=== PATIENT | female | born 1955 | race Caucasian/White ===

== ENCOUNTER 2020-01-20 15:09 | Emergency (ER) | payer MEDICARE, MEDICAID ==
[~2020-01-20] VITALS: Ht 160 cm; Wt 124.7 kg
[2020-01-20 15:15] VITALS: BP 154/45
[2020-01-20 16:04] LABS: BASOPHILS # (AUTO) 0.1 K/uL (0.00-0.22); BASOPHILS % (AUTO) 1.1 % (0.0-2.0); EOSINOPHILS # (AUTO) 0.1 K/uL (0-0.4); EOSINOPHILS % (AUTO) 3.1 % (0.0-4.0); HEMATOCRIT 37.1 % (36-48); HEMOGLOBIN 12.5 g/dL (12.0-16.0); LYMPHOCYTES # (AUTO) 1.9 K/uL (2.5-16.5); LYMPHOCYTES % (AUTO) 41.6 % (20.5-51.1); MEAN CORPUSCULAR HEMOGLOBIN 31 pg (27-31); MEAN CORPUSCULAR HGB CONC 34 g/dL (33-37); MEAN CORPUSCULAR VOLUME 93.3 fL (80-94); MONOCYTES # (AUTO) 0.4 K/uL (0.8-1.0); MONOCYTES % (AUTO) 7.9 % (1.7-9.3); NEUTROPHILS # (AUTO) 2.1 K/uL (1.8-7.7); NEUTROPHILS % (AUTO) 46.3 % (42.2-75.2); PLATELET COUNT (AUTO) 200 K/uL (140-450); RED BLOOD CELL COUNT(AUTO) 3.97 MIL/uL (4.20-5.40); RED CELL DISTRIBUTION WIDTH 13.5 % (11.6-13.7); WHITE BLOOD COUNT (AUTO) 4.6 K/uL (4.8-10.8)
[2020-01-20 16:14] LABS: BILIRUBIN,URINE NEGATIVE (NEGATIVE); BLOOD, URINE NEGATIVE (NEGATIVE); COLOR,URINE YELLOW (YELLOW); LEUKOCYTE ESTERASE ,URINE 2+ (NEGATIVE); NITRITE, URINE POSITIVE (NEGATIVE); PH,URINE 5.5 (5.0-9.0); UGLUCOSE NEGATIVE (NEGATIVE)
[2020-01-20 16:17] LABS: APPEARANCE,URINE HAZY (CLEAR)
[2020-01-20 16:22] LABS: ALBUMIN 3.9 g/dL (3.4-5.0); ANION GAP 11.6 (8-16); CARBON DIOXIDE 26.2 mmol/L (21-32); CREATININE 1.6 mg/dL (0.6-1.3); POTASSIUM 4.8 mmol/L (3.5-5.1); TOTAL BILIRUBIN 0.7 mg/dL (0.0-1.0)
[2020-01-20 16:44] LABS: RBC,URINE NONE SEEN /HPF (0-5); WBC,URINE 80-100 /HPF (0-5)
[2020-01-20 17:12] VITALS: BP 145/52
== END 2020-01-20 17:13 | disposition home or self-care (01) ==
LOC: MED 15:09
DX: N39.0 Urinary tract infection, site not specified (principal); K42.9 Umbilical hernia without obstruction or gangrene
CPT/HCPCS: 36415; 80053; 81001; 83690; 85025; 87086; 87186; 99284

== ENCOUNTER 2020-01-22 12:18 | Inpatient (IN) | payer MEDICARE, MEDICAID, SELFPAY ==
[~2020-01-22] VITALS: Ht 160 cm; Wt 132.4 kg
[2020-01-22 12:30] VITALS: BP 155/77
--- NOTE | 2020-01-22 12:42 | NUR ---
64/F BIB SELF C/O N/V X TODAY,LOWER ABDOMINAL PAIN X 10 DAYS. SEEN HERE FOR CHLELITHIASIS,UTI 01/20/20.MED HX: HTN, ANXIETY, SCHIZOPHRENIA.ABDOMEN SOFT, NO TENDRNESS. PATIENT STATES PAIN OF 10/10 AT THIS TIME. PATIENT POSITIONED FOR COMFORT; HOB ELEVATED; BEDRAILS UP X1; BED DOWN. ER MADE AWARE OF PT STATUS. Addendum: 01/22/20 at 1334 by [email or web address] hx: umbilical hernia.
[2020-01-22] MEDS ORDERED: MORPHINE SULFATE 4 MG/ML SYR IVP ONE ×2 (12:55→17:20)
[2020-01-22] MEDS ORDERED: ONDANSETRON 4 MG/2 ML VIAL IVP ONE ×2 (12:55→17:20)
[2020-01-22 13:18] LABS: BASOPHILS % (AUTO) 0.4 % (0.0-2.0); EOSINOPHILS % (AUTO) 0.2 % (0.0-4.0); HEMATOCRIT 40.5 % (36-48); LYMPHOCYTES # (AUTO) 0.8 K/uL (2.5-16.5); MEAN CORPUSCULAR HEMOGLOBIN 32 pg (27-31); MEAN CORPUSCULAR HGB CONC 35 g/dL (33-37); MEAN CORPUSCULAR VOLUME 92.4 fL (80-94); MONOCYTES # (AUTO) 0.8 K/uL (0.8-1.0); MONOCYTES % (AUTO) 8.9 % (1.7-9.3); NEUTROPHILS % (AUTO) 81.5 % (42.2-75.2); PLATELET COUNT (AUTO) 218 K/uL (140-450); RED BLOOD CELL COUNT(AUTO) 4.38 MIL/uL (4.20-5.40); RED CELL DISTRIBUTION WIDTH 13.5 % (11.6-13.7); WHITE BLOOD COUNT (AUTO) 8.6 K/uL (4.8-10.8)
--- NOTE | 2020-01-22 13:23 | NUR ---
PATIENT RESTING IN BED WITH EYES OPEN. AWAKE AND ALERT. RESP EVEN AND UNLABORED. VSS
[2020-01-22 13:46] LABS: ALBUMIN 3.9 g/dL (3.4-5.0); ANION GAP 16.8 (8-16); CARBON DIOXIDE 25.4 mmol/L (21-32); CREATININE 1.8 mg/dL (0.6-1.3); POTASSIUM 4.2 mmol/L (3.5-5.1); TOTAL BILIRUBIN 0.8 mg/dL (0.0-1.0)
[2020-01-22 14:05] LABS: APPEARANCE,URINE SL CLOUDY (CLEAR); BILIRUBIN,URINE 2+ (NEGATIVE); BLOOD, URINE NEGATIVE (NEGATIVE); COLOR,URINE ORANGE (YELLOW); LEUKOCYTE ESTERASE ,URINE TRACE (NEGATIVE); NITRITE, URINE NEGATIVE (NEGATIVE); PH,URINE 5.5 (5.0-9.0); UGLUCOSE NEGATIVE (NEGATIVE)
[2020-01-22 14:21] LABS: RBC,URINE 0-5 /HPF (0-5)
--- NOTE | 2020-01-22 14:25 | NUR ---
PT STATES PAIN LEVEL HAS DECREASED TO 7/10. DOES NOT WISH TO HAVE MORE PAIN MEDICATION AT THIS TIME.
--- NOTE | 2020-01-22 16:50 | NUR ---
PATIENT IS RESTING IN BED WITH EYES CLOSED. AROUSABLE TO VOICE. RESP EVEN AND UNLABORED. VSS. ALL NEEDS MET AT THIS TIME
--- NOTE | 2020-01-22 17:08 | NUR ---
REPORT CALLED TO RHONDA AT [phone]
--- NOTE | 2020-01-22 17:25 | NUR ---
PT IS REPORTING PAIN HAS INCREASED 05/23/ ERMD NOTIFIED. MEDS ORDERED.
[2020-01-22] MEDS ORDERED: HYDROcodone/APAP 7.5/325 MG 1 TAB PO PRN (17:50)
[2020-01-22] MEDS ORDERED: GABA100C PO ×2 (18:01→19:17)
[2020-01-22] MEDS ORDERED: [UNRECOGNIZED DRUG - CODE] TD (18:01)
[2020-01-22] MEDS ORDERED: ABI10 PO ×2 (18:01→19:17)
[2020-01-22 18:34] LABS: PROTHROMBIN TIME 10.6 secs (10.8-13.4)
[2020-01-22 18:37] LABS: BARBITURATE, URINE NEGATIVE ng/ml (NEG <=200); BENZODIAZEPINE, URINE NEGATIVE ng/mL (NEG <=200); CANNABINOID, URINE NEGATIVE ng/mL (NEG <=50); COCAINE, URINE NEGATIVE ng/mL (NEG <=300); OPIATE, URINE POSITIVE ng/mL (NEG <=2000); PHENCYCLIDINE SCREEN,URINE NEGATIVE ng/mL (NEG <=25)
[2020-01-22 18:44] LABS: MAGNESIUM 1.8 mg/dL (1.8-2.4); PHOSPHORUS 3.7 mg/dL (2.5-4.9); THYROID STIMULATING HORMONE 2.9 uIU/mL (0.34-3.74)
--- NOTE | 2020-01-22 18:58 | NUR ---
Pt transferred to Med/Surg via bed roon 110b with mariusz Taylor .
[2020-01-22 19:10] VITALS: BP 83/45
--- NOTE | 2020-01-22 19:10 | NUR ---
RECEIVED PT FROM ED VIA WHEELCHAIR, PT PLACED ON BED, AMBULATORY W/ CANE ON THE RIGHT. PT A, AO X 4. PT SAID SHE HAS 5/10 PAIN ON THE ABDOMEN, WILL MEDICATE LATER. W/ IV THE LEFT AC G 20, PATENT AND INTACT, MRSA DONE, POC REVIEWED, WILL CONTINUE TO MONITOR, PLACED ON LOW BED, ORIENTED TO UNIT, PLACED CALL LIGHT WITHIN EASY REACH.
[2020-01-22] MEDS ORDERED: NAPR-1560 PO (19:17)
[2020-01-22] MEDS ORDERED: QUET100T PO (19:17)
[2020-01-22] MEDS ORDERED: GEMF600T5 PO (19:17)
[2020-01-22] MEDS ORDERED: MONT10TA35 PO (19:17)
[2020-01-22] MEDS ORDERED: BUS5 PO (19:17)
[2020-01-22] MEDS ORDERED: DIT5 PO (19:17)
[2020-01-22] MEDS ORDERED: LISI10TA11 PO (19:17)
--- NOTE | 2020-01-22 19:24 | NUR ---
Patient will be admitted to care of BOONE. Admited to MED SURG. Will go to room 110B. Belongings list completed. Report tO EVA MONTENEGRO.
--- NOTE | 2020-01-22 19:30 | NUR ---
PLACED PT IN COMFORTABLE POSITION, STARTED IVF FLUID AND MEDS GIVEN. NPO EXCEPT MEDS
[2020-01-22] MEDS ORDERED: GABAPENTIN 100 MG CAP PO SCH (19:45)
[2020-01-22] MEDS: DEXT 5% / NACL 0.45% 1,000 ML IV SCH (19:46)
[2020-01-22] MEDS ORDERED: ceFAZolin 1,000 MG VIAL ONE (20:05)
[2020-01-22] MEDS: DOCUSATE SODIUM 100 MG GELCAP PO SCH (20:25)
[2020-01-22] MEDS: GEMFIBROZIL 600 MG TAB PO SCH (20:25)
[2020-01-22] MEDS: busPIRone 5 MG TAB PO SCH (20:25)
[2020-01-22] MEDS: QUEtiapine FUMARATE 100 MG TAB PO SCH (20:26)
[2020-01-22] MEDS: MONTELUKAST SODIUM 10 MG TAB PO SCH (20:26)
[2020-01-22] MEDS: GABAPENTIN 100 MG CAP PO SCH (21:07)
--- NOTE | 2020-01-22 21:54 | NUR ---
SIGNED CONSENT FOR DIAGNOSTIC LAPAROSCOPIC REPAIR OF UMBILICAL HERNIA WITH MESH, POSSIBLE LYSIS OF ADHESIONS, POSS. EXPORATORY LAPAROTOMY, POSSIBLE BOWEL RESECTION. Addendum: 01/23/20 at 0114 by Anju Mccormack RN AMEND TIME SIGNED CONSENT TO: [id number]
[2020-01-23] VITALS: BP 80/46
--- NOTE | 2020-01-23 | NUR ---
PT C/O OF NAUSEA ONDANSETRON GIVEN, WILL CONTINUE TO MONITOR
--- NOTE | 2020-01-23 00:06 | NUR ---
PT C/O OF CRAMPING ON THE CHEST. EKG DONE BY JOHNNY, RESP. TECH. WILL MONITOR
--- NOTE | 2020-01-23 00:30 | NUR ---
INFORMED DR. CLARK CHEST PAIN EARLIER AND PT AST THIS TIME SAID SHE'S FEELING BETTER, NO ORE CHEST PAIN. HAD A EKG EARLIER, DR. CLARK READ THE RESULT-NORMAL
--- NOTE | 2020-01-23 01:35 | NUR ---
DR. ARVIZU AT BEDSIDE AWARE THAT BP IS 80/46; LYING DOWN; SITTING HIGH BACK REST ON BED- SAME BP; HR 76,
--- NOTE | 2020-01-23 01:54 | NUR ---
INFORMED ALSO DR. CLARK THAT BP IS 80/ 46 MMHG- LATEST ONE; NO BOLUS WAS GIVEN NO ORDER. AND DR. ARVIZU AWARE BP IS DECREASED.TRIED TO CALL OR NURSE TO INFORM OR- NO ANSWER
--- NOTE | 2020-01-23 02:06 | NUR ---
PLACED PT IN REVERSE [place]DE[place]BURG FOR THE DECREASED BP; WILL CONTINUE TO MONITOR BP
[2020-01-23] MEDS: GABAPENTIN 100 MG CAP PO SCH ×3 (05:35→20:46)
[2020-01-23 06:25] VITALS: BP 88/40
--- NOTE | 2020-01-23 06:32 | NUR ---
PT ACCIDENTALLY PIERCED ONGOING D51/2 NS WHILE GOING TO THE BATHROOM, 500 ML WASTED AND WILL CHANGE BAG
[2020-01-23] MEDS: DEXT 5% / NACL 0.45% 1,000 ML IV SCH (06:34)
--- NOTE | 2020-01-23 06:40 | NUR ---
PT SLEEPING, PLACED IN REVERSE [place]ENDELBERG POSITION; PT AA O X 4, ABLE TO AMBULATE W/ CANE FOR MONITORING OF BP.
[2020-01-23 06:52] LABS: BASOPHILS % (AUTO) 0.2 % (0.0-2.0); EOSINOPHILS # (AUTO) 0.1 K/uL (0-0.4); EOSINOPHILS % (AUTO) 0.6 % (0.0-4.0); HEMATOCRIT 34.3 % (36-48); HEMOGLOBIN 11.7 g/dL (12.0-16.0); LYMPHOCYTES # (AUTO) 1.1 K/uL (2.5-16.5); LYMPHOCYTES % (AUTO) 12.5 % (20.5-51.1); MEAN CORPUSCULAR HEMOGLOBIN 32 pg (27-31); MEAN CORPUSCULAR HGB CONC 34 g/dL (33-37); MEAN CORPUSCULAR VOLUME 92.9 fL (80-94); MONOCYTES % (AUTO) 11.1 % (1.7-9.3); NEUTROPHILS # (AUTO) 6.8 K/uL (1.8-7.7); NEUTROPHILS % (AUTO) 75.6 % (42.2-75.2); PLATELET COUNT (AUTO) 202 K/uL (140-450); RED CELL DISTRIBUTION WIDTH 13.3 % (11.6-13.7)
--- NOTE | 2020-01-23 07:12 | NUR ---
RECEIVED PATIENT FROM MACHINE EGG WASHER NURSE FOR CONTINUITY OF CARE. PATIENT IS AAOX4. KHMER SPEAKING. NO SIGNS OF DISTRESS NOTED. RESPIRATIONS EVEN AND UNLABORED, ROOM AIR. VISIBLE CHEST RISE AND FALL NOTED. MED-SURG. ABDOMEN SOFT AND AND ROUND. PATIENT HAS SCHEDULED LAP REPAIR OF UMBILICAL HERNIA, POSSIBLE EXPLORATORY LAP. PATIENT IS AWARE. CONSENT SIGNED. PREOP CHECKLIST COMPLETED. SKIN WARM, DRY, AND INTACT. IV IN THE LEFT AC G20, RUNNING D51/2 NS AT 50 ML/HR. PATIENT IS AMBULATORY WITH CANE. ON FALL PRECAUTION. BED IN LOW POSITION. CALL LIGHT IS WITHIN REACH. WILL CONTINUE TO MONITOR.
[2020-01-23 07:32] LABS: MAGNESIUM 1.8 mg/dL (1.8-2.4); PHOSPHORUS 5.5 mg/dL (2.5-4.9)
[2020-01-23 07:33] LABS: ANION GAP 14.9 (8-16); CARBON DIOXIDE 24.7 mmol/L (21-32); POTASSIUM 4.6 mmol/L (3.5-5.1)
[2020-01-23] MEDS: BLOOD GLUCOSE MONITORING 1 DEV DEV FS SCH ×4 (07:48→20:41)
--- NOTE | 2020-01-23 07:48 | NUR ---
CHECKED BLOOD SUGAR: 153. NO INSULIN ORDERED. WILL NOTIFY RESIDENT DOCTOR.
[2020-01-23] MEDS ORDERED: DEXTROSE 50% 50 ML SYR IVP PRN (07:55)
[2020-01-23] MEDS ORDERED: GLUCAGON 1 MG VIAL IVP PRN (07:55)
[2020-01-23] MEDS: ONDANSETRON 4 MG/2 ML VIAL IVP PRN ×3 (08:10→21:02)
[2020-01-23] MEDS: ARIPiprazole 10 MG TAB PO SCH (08:21)
[2020-01-23] MEDS: busPIRone 5 MG TAB PO SCH ×2 (08:22→20:43)
[2020-01-23] MEDS: DOCUSATE SODIUM 100 MG GELCAP PO SCH ×2 (08:22→20:43)
[2020-01-23] MEDS: FAMOTIDINE 20 MG TAB PO SCH (08:23)
[2020-01-23] MEDS: GEMFIBROZIL 600 MG TAB PO SCH ×2 (08:23→20:43)
[2020-01-23 08:27] LABS: CHOL/HDL RATIO 3.9 (1-4.5)
--- NOTE | 2020-01-23 08:44 | NUR ---
SCHEDULED MEDICATIONS GIVEN. PATIENT TOLERATED WELL. BLOOD PRESSURE 113/81. PATIENT COMPLAINED OF NAUSEA, GIVEN PRN ZOFRAN. CONTINUES TO BE NPO EXCEPT MEDS. WILL CONTINUE TO MONITOR.
--- NOTE | 2020-01-23 08:54 | NUR ---
PATIENT HAS BEEN SCREENED AND CATEGORIZED MODERATE NUTRITION RISK. PATIENT WILL BE SEEN WITHIN 3-5 DAYS OF ADMISSION. 01/25/20 01/27/[address]
[2020-01-23] MEDS ORDERED: LISINOPRIL 10 MG TAB PO SCH (09:00)
[2020-01-23] MEDS ORDERED: OXYBUTYNIN 5 MG TAB PO SCH ×2 (09:00)
--- NOTE | 2020-01-23 09:19 | NUR ---
DC [age] YRS OLD FEMALE PATIENT WAS ADMITTED FROM HOME WITH A DX OF VENTRAL HERNIA, PT HAS A HX OF HTN, HLD, SCHIZOPHRENIA AND ABDOMINAL HERNIA . CT ABD/PELVIS SHOWED MODERATED ABDOMINAL HERNIA CONTAINING FAT AND A LOOP OF SMALL BOWEL. STARTED IVF, PAIN CONTROL , NPO AND CONSULTED WITH SURGEON DR ARVIZU FOR POSSIBLE EXP LAP OPEN REPAIR OF UMBILICAL HERNIA, POSSIBLE SMALL BOWEL RESECTION AND POSSIBLE USE OF MESH. DC PLAN TO GO HOME WHEN STABLE. CM TO FOLLOW. Addendum: 01/23/20 at 1520 by Emily Hayes CM RECEIVED AN ORDER FOR HIGHER LEVEL OF CARE FOR INCARCERATED UMBILICAL HERNIA REPAIR. CONTACTED OLIVER TYLER OF [facility] AT [phone], NO ANSWER. LEFT MESSAGE. CLINICALS AND ORDER SENT TO [phone]. WILL FOLLOW UP. RECEIVED A CALL FROM MARY PAYING TELLER FROM [facility] FOR ANOTHER PATIENT. I INFORMED HER OF THE ORDER AND A MESSAGE LEFT TO OLIVER TYLER. SHE STATED NAYELI MIGHT NOT BE THE CM ASSIGNED TO THIS PATIENT HOWEVER SHE WILL FIND OUT AND WILL HAVE THEM CALL ME BACK. Addendum: 01/23/20 at 1530 by Emily Hayes CM REFERRAL FAXED TO [facility] AND [facility]. WILL FOLLOW UP. Addendum: 01/23/20 at 1547 by Emily Hayes RECEIVED A MESSAGE FROM OLIVER COULTER AT [facility] REGARDING HLOC TRANSFER. RETURNED CALL NO ANSWER, LEFT MESSAGE. Addendum: 01/23/20 at 1610 by Emily Hayes RECEIVED A CALL BACK FROM OLIVER COULTER OF [facility] REGARDING ORDER FOR HLOC TRANSFER. I INFORMED HER THAT I SENT THE REFERRAL TO [facility] AND [facility]. SHE STATED SHE WILL TALK TO HER CAFETERIA CLERK REGARDING THE ORDER AND WILL CALL ME BACK. PROVIDED HER WITH THE UNIT'S PHONE NUMBER FOR AFTER HOURS. Addendum: 01/23/20 at 1614 by Emily Hayes CHARGE NURSE AND DR. JERRY MADE AWARE. Addendum: 01/23/20 at 1623 by Emily Hayes CONT. FOR PREVIOUS CONVERSATION WITH OLIVER ORDAZ. PER OLIVER COULTER MAY USE [employer] AT [phone]. CONTACTED [facility] TRANSFER [facility] AT [phone], ABLE TO SPEAK TO KIM. SHE STATED SHE WILL REVIEW THE CASE AND WILL CALL BACK IF THERE IS AN ACCEPTING PHYSICIAN AND AVAILABLE BED HOWEVER SHE IS REQUESTING FOR THE AUTH WELL. CONTACTED OLIVER DANIELSON [facility], NO ANSWER. LEFT MESSAGE. Addendum: 01/23/20 at 1644 by Meg Bedolla MARYLIN FROM [facility] CALLED TO FOLLOW UP, SHE SAID SHE IS WORKING ON REACHING OUT TO OTHER HOSPITALS FOR THE PATIENT. SHE WILL CONTACT US WHEN SHE RECEIVES INFORMATION Addendum: 01/23/20 at 1651 by Meg Bedolla MARYLIN AT [facility] CALLED AND STATED SHE IS GOING TO FAX OVER A HIGHER LEVER OF CARE FORM. ONCE THE FAX COMES THROUGH FAX IT OVER TO FAX # [phone] Addendum: 01/24/20 at 0842 by Emily Hayes 2036: RECEIVED A VOICEMAIL FROM MEGHAN FROM [facility] TRANSF[facility], STATING THAT THEY ARE REQUIRING AUTH BEFORE THEY CAN PROCEED WITH THE PROCESS. 2046: RECEIVED A MESSAGE FROM [facility]SFER [facility], STATING THAT IF IT IS NOT AN EMERGENCY TRANSFER "LIFE AND " THEY WILL HAVE TO CANCEL THE REFERRAL SINCE THEY ARE ONLY ACCEPTING EMERGENCY TRANSFER AT THE MOMENT. 799: RECEIVED A MESSAGE FROM OLIVER COULTER OF [facility], STATING THAT SHE WILL REACH OUT TO HER CAFETERIA CLERK TO CREATE AN AUTH FOR [facility]. 0812: CONTACTED OLIVER COULTER [facility] REGARDING TRANSFER. SHE STATED THAT THEY ARE IN THE PROCESS OF CREATING THE AUTH FOR [facility] AND WILL CALL ME BACK ONCE AUTH IS AVAILABLE. SHE ALSO STATED THAT THEY SENT THE REFERRAL TO OTHER HOSPITALS, SO FAR AJ DECLINED THE CASE AND IS STILL WAITING FOR OTHER HOSPITAL TO RESPOND. 08: CONTACTED [facility], ABLE TO SPEAK TO JOHN. SHE STATED THEY ARE STILL WAITING FOR THE AUTH. INFORMED HER THAT I AM IN CONTACT WITH THE INSURANCE AND JUST WAITING FOR THE CALL BACK FOR THE AUTH. SHE INQUIRED IF DR. ARVIZU WILL BE ABLE TO ACCEPT THE PATIENT, SO SHE DOES NOT HAVE TO REACH OUT TO OTHER SURGEONS. INFORMED HER THAT I HAVE TO CLARIFY THAT WITH OUR RESIDENT PHYSICIAN. DR. FISCHER MADE AWARE. HE STATED THAT DR. ARVIZU DECLINED THE CASE. HOWEVER, THEY ARE IN THE PROCESS OF GETTING A SECOND OPINION FROM DR. SIFUENTES. HE ALSO STATED TO HOLD OFF ON THE TRANSFER AND TO GIVE THEM AT LEAST AN HOUR FOR THEM TO KNOW DR. SIFUENTES'S RECOMMENDATIONS. OLIVER MARTIN [facility] MADE AWARE, SHE STATED JUST TO UPDATE HER OF THE PLAN. WILL FOLLOW UP. Addendum: 01/24/20 at 1029 by Emily Hayes PER SURGEON DR. SIFUENTES'S CONSULTATION NOTES - HIS PLAN IS TO OBTAIN CONSENT FOR UMBILICAL HERNIA REPAIR POSSIBLE BOWEL RESECTION POSSIBLE MESH AND PLACEMENT OF JANAE DIALYSIS CATHETER. FOLLOWED UP WITH DR. FISCHER TO CONFIRM, SPOKE TO DR. JERRY. HE STATED HE WILL LET DR. FISCHER KNOW. Addendum: 01/24/20 at 1112 by Emily Hayes CM CONTACTED OLIVER COULTER AT [phone] TO PROVIDE UPDATES, NO ANSWER. LEFT MESSAGE. WILL FOLLOW UP. Addendum: 01/24/20 at 1148 by Emily Hayes CM RECEIVED A CALL BACK FROM OLIVER COULTER, UPDATED HER OF THE PATIENT'S CONDITION. SHE STATED TO LET HER KNOW ONCE SURGERY IS DONE AND TO SEN HER ANY NOTES FROM SURGERY. Addendum: 01/25/20 at 0876 by Emily Hayes UPDATED CLINICALS AND OPERATIVE REPORT FAXED TO [facility] AT [phone]. CONTACTED OLIVER TYLER OF [facility] AT [phone], NO ANSWER. LEFT MESSAGE. Addendum: 01/25/20 at 1050 by Emily Hayes CM S/P PLACEMENT OF RIJ JANAE CATH AND REPAIR OF INCARCERATED UMBILICAL HERNIA , SMALL BOWEL RESECTION WITH DR. HARDEEP SIFUENTES 01/24/2020. PATIENT HAD DIALYSIS LAST NIGHT - 1.1 L OUT. WITH EPISODES OF LOW BP-MIGHT NEED PRESSORS IF BP STILL CONTINUES TO BE LOW. SEEN BY NEPHRO - PLAN FOR NEXT HD TOMORROW. Addendum: 01/25/20 at 1112 by Emily Hayes CM OLIVER MARTIN DC SUSHMA UPDATED OF THE PATIENT'S CONDITION. SHE STATED SHE RECEIVED A CALL FROM [facility] INQUIRING IF PATIENT IS STILL REQUIRING HIGHER LEVEL TRANSFER AND SHE TOLD THEM THAT THE PATIENT HAD SURGERY ALREADY AND WILL BE STAYING AT [place] FOR NOW. Addendum: 01/28/20 at 1452 by Emily Hayes CM POST OP DAY #4. CURRENT LABS INCLUDE WBC 5.3, H/H 9.9/29.3, NA/K 143/3.4, BUN/CREA 23/1.3 AND MAG 1.7. ABD X RAY SHOWED DILATED LOOPS OF SMALL BOWEL IN THE LEFT SIDE OF THE ABDOMEN WITH VERY LITTLE GAS POSSIBLY REFLECTING A PARTIAL OBSTRUCTION. ILEUS IS NOT EXCLUDED. DIET ADVANCED TO FULL LIQUID DIET. DC PLAN PENDING ON PATIENT'S RESPONSE TO TREATMENT. Addendum: 01/29/20 at 1043 by Meg Mayeda CM LEFT A MESSAGE FOR NAYELI LEE AT [facility] [phone] TO CALL ME BACK REGARDING CONTRACTED SNF FOR PATIENT. Addendum: 01/29/20 at 1642 by Meg Mayeda CM SPOKE TP PATIENT ABOUT OTHER OPTIONS FOR SNF THAT IS CONTRACTED UNDER HER INSURANCE. PROVIDED HER WITH BROCHURES FOR [facility] IN [place] AND [facility]. SHE IS WILLING TO GO TO EITHER SNF THAT WILL ACCEPT HER. SPOKE TO STEPHANIE AT [facility] [phone] SHE STATED NO BEDS AVAILABLE AT THE TIME BUT WILLING TO ACCEPT PATIENT IF BED OPENS UP. I WILL FOLLOW UP WITH STEPHANIE TOMORROW TO SEE IF ANY BEDS OPEN UP. CONTACTED [facility] AND SPOKE TO ASHLEIGH [phone] SHE IS GOING TO CALL ME BACK ONCE SHE REVIEWS THE PATIENTS PACKET. Addendum: 01/30/20 at 0908 by Meg Bedolla CM FOLLOWED UP WITH [facility] AND SPOKE TO AUGUSTINA, SHE IS GOING TAO HAVE JONATAN CALL ME BACK. ALSO FOLLOWED UP WITH [facility] STEPHANIE WILL CALL ME BACK WELL AFTER HER MORNING MEETING. Addendum: 01/30/20 at 1024 by Meg Bedolla CM FOLLOWED UP WITH JONATAN AT [facility] [phone], SHE WILL FOLLOW UP WITH ME ONCE SHE REVIEWS PATIENTS PACKET. Addendum: 01/30/20 at 1110 by Meg Bedolla CM SPOKE TO JONATAN AT [facility], THEY ARE WILLING TO ACCEPT THE PATIENT. JONATAN IS GOING TO CONTACT NAYELI [facility] [phone] TO GET AUTH AND THEN FOLLOW UP WITH ME WITH BED NUMBER. Addendum: 01/30/20 at 1130 by Meg Bedolla CM SPOKE TO DR. FISCHER TO LET HIM KNOW [facility] WILL BE ACCEPTING PATIENT. HE IS WORKING ON DISCHARGE. Addendum: 01/30/20 at 1144 by Meg Bedolla CM TRIED CALLING NAYELI AT [facility] FOR AUTHORIZATION, NO ANSWER LEFT A VOICEMAIL. CALLED JONATAN AT [facility] TO GET FOLLOW UP, SHE WAS NOT ABLE TO GET A HOLD OF NAYELI EITHER BUT LEFT A VOICEMAIL. Addendum: 01/30/20 at 1437 by Emily Hayes CM CONTACTED [facility] AT [phone], ABLE TO SPEAK TO LISA. I INQUIRED IF OLIVER TYLER IS WORKING TODAY BECAUSE SHE IS NOT RETURNING ALL OUR CALLS SINCE THIS MORNING. SHE STATED SHE WILL NOT KNOW SINCE THEY ROAD CROSSING GUARD HOWEVER SHE CAN SEND AN EMAIL TO NAYELI CORNELL WE ARE TRYING TO REACH HER. WILL FOLLOW UP. Addendum: 01/30/20 at 1514 by Meg Bedolla CM SPOKE TO JONATAN AT [facility] AND SHE STATED THAT THE BILLBOARD INSTALLER WILL NOT ACCEPT THIS PATIENT. I WILL REACH OUT TO OTHER SNFS. Addendum: 01/30/20 at 1606 by Meg Bedolla CM I FOLLOWED UP WITH DOCTOR FISCHER TO INFORM HIM PATIENT WAS NOT ACCEPTED TO [facility] AND THAT I ALSO FOLLOWED UP WITH BERKLEY MISHRA. [facility] STILL DOES NOT HAVE ANY AVAILABLE BEDS. FAXED PACKET TO AILYN AT [facility]. DR. FISCHER PREFERS US TO TRY COMMUNITY EXTENDED CARE AND WILL FOLLOW UP WITH SECOND COVID TEST. Addendum: 01/30/20 at 1635 by Meg Bedolla CM FAXED PATIENTS PACKET TO [facility], FOLLOWED UP WITH DEE DEE TO MAKE SURE SHE RECEIVED IT. SHE STATED SHE RECEIVED THE PACKET AND WILL HAVE HER DON REVIEW IT, BUT THEY WILL REQUIRE TWO NEGATIVE COVID TEST. Addendum: 01/31/20 at 1114 by Meg Bedolla CM CALLED [facility] [phone] AND SPOKE TO PHILIPPE IN ADMISSIONS HE STATED THEY HAD AN OPEN BED AND TO FAX OVER PATIENTS PACKET. FAXED PACKET AND WILL FOLLOW UP. Addendum: 01/31/20 at 1206 by Emily Hayes RECEIVED A MESSAGE FROM OLIVER PEARSON OF [facility]. RETURNED HIS CALL AT [phone], UPDATED HIM OF THE PATIENT'S CONDITION AND THE DC PLAN. I ALSO INFORMED HIM THAT WE WERE TRYING TO CONTACT OLIVER TYLER OF [facility] AND HAVE NOT HEARD ANYTHING BACK FROM HER. HE STATED THAT [facility] GAVE THE PATIENT BACK TO THEM AND THEY ARE THE ONES DELEGATED TO PROVIDE AUTH FOR SNF. HE ALSO STATED THAT THE ONLY REASON WHY OLIVER TYLER WAS WORKING ON IT BECAUSE OF OUT OF AREA. HE PROVIDED ME WITH THE FAX NUMBER [phone] TO SEND THE ORDER AND PT NOTES AND TO ATTENTION IT TO SNF PLACEMENT. I REQUESTED FOR THE LIST OF THEIR CONTRACTED FACILITIES, HE REPLIED "WE WILL BE THE ONES WHO WILL FIND PLACEMENT FOR THE PATIENT." PER LILI HE WILL CALL ME BACK SOON THEY FIND A PLACE. Addendum: 01/31/20 at 1333 by Meg Bedolla CM FOLLOWED UP WITH LILI [employer] ROBOTICIST [phone], NO ANSWER BUT LEFT A VOICEMAIL TO FOLLOW UP ON FAX. Addendum: 01/31/20 at 1605 by Meg Bedolla CM SPOKE TO LILI AT [facility] HE IS STILL TRYING TO REACH OUT TO SNFS FOR PATIENT, HE SUGGESTED IF WE CAN NOT FIND AN ACCEPTING SNF TO SPEAK TO THE PATIENT ABOUT HOME HEALTH PHYSICAL THERAPY. SPOKE TO DR. FISCHER ABOUT THIS AND HE AGREED LONG PATIENTS LIVING SITUATION COULD ACCOMMODATE. Addendum: 02/01/20 at 1143 by Meg Bedolla CM FOLLOWED UP WITH LILI AT [place] [phone] [phone]. HE WILL BE CONTACTING ME BACK WITH [facility] AND STATED THAT HE WILL HAVE HIS D/C UNDERWATER HUNTER GET BACK TO ME. I MADE SURE TO NOTIFY THAT PATIENT NEEDS TO GO HOME TODAY. HE STATED THAT THEY WILL HAVE A HOME HEALTH NURSE AVAILABLE TO GO TO HER HOME WITHIN THE NEXT 24-48 HOURS. Addendum: 02/01/20 at 1159 by Meg Bedolla CM SPOKE TO PATIENTS SISTER MARCE HOPKINS ABOUT POSSIBLE DISCHARGE TODAY WITH HOME HEALTH. SHE WAS AGREEABLE TO ALLOWING A HOME HEALTH AGENCY COME TO HER HOME TO ASSIST PATIENT WITH PHYSICAL THERAPY. MARCE ALSO SAID THAT SHE WOULD BE ABLE TO RESPITE COORDINATOR PATIENT WHEN DISCHARGED. TRANSFERRED MARCE TO MONI GONZALES BECAUSE SHE HAD FURTHER QUESTIONS. Addendum: 02/01/20 at 1343 by Meg Bedolla CM PAYING TELLER [phone] [phone] FROM [employer] CONTACTED ME LETTING ME KNOW PATIENT HAS BEEN ACCEPTED FOR HOME HEALTH AGENCY ([facility] [phone]. Addendum: 02/01/20 at 1347 by Meg Bedolla CM SPOKE TO RN TO MAKE AWARE OF DISCHARGE PLANS, DR. JERRY IS WORKING ON DISCHARGE SUMMARY.
[2020-01-23 09:20] VITALS: BP 113/81
--- NOTE | 2020-01-23 10:22 | NUR ---
PATIENT ASLEEP IN IN BED. RISE AND FALL OF CHEST NOTED. NO DISTRESS NOTED. SAFETY MEASURES IN PLACE. BED IN LOWEST POSITION, CALL LIGHT WITHIN REACH. WILL CONTINUE TO MONITOR.
--- NOTE | 2020-01-23 10:42 | NUR ---
RANGE RIDER NOTE: Basic Screen: Yes High Risk DC Screen [place]: MARCE Ferraro Relationship: SISTER Pre-Admission Living Arrangements: Lives with Other Prior ADL Needs Assistance Current Home Health Name/Tel: N/A Current DME/02 Name/Tel: [facility]ALKER, CANE Current Hospice Name/Tel: N/A Current Dialysis Name/Tel: N/A Healthcare Decision Maker: Patient Advance Directive No Physician Orders for Life Sustaining Treatment Form No Patient/Family Have Educational Needs No Discipline: Case Mgt/Social Svcs Tentative Discharge Plan/Destination: No Needs Identified Will require assistance post discharge: No Referred to Donkey Ride Operator: No Tentative Discharge Plan Summary: PATIENT IS A 64-YEAR-OLD FEMALE ADMITTED FOR VENTRAL HERNIA. PATIENT HAS PMHX OF HYPERTENSION. PATIENT WAS ADMITTED FROM HOME WHERE SHE LIVES WITH HER SISTER/CAREGIVER. SW MET WITH PATIENT AT BEDSIDE TO VERIFY DEMOGRAPHICS. PER PATIENT, HER SISTER IS HER SS CAREGIVER. PATIENT WAS UNABLE TO RECALL HOW MANY HOURS SHE WAS DESIGNATED. PATIENT STATED THAT SHE IS PARTIALLY INDEPENDENT WITH SOME ADLS, BUT NEEDS ASSISTANCE BATHING, PREPARING MEALS, SHOPPPING, AND TRANSPORTATION TO PHYSICIAN'S APPOINTMENTS. PATIENT STATED THAT SHE HAS A HISTORY OF MENTAL HEATLH BUT REFUSED MENTAL HEALTH RESOURCES. PATIENT REPORTS NO SUBSTANCE ABUSE HISTORY. TENTATIVE DISCHARGE PLAN IS FOR PATIENT TO RETURN HOME. Signature: ABRAHAM FORD Date: January 23, 2020 Time: 10:41
[2020-01-23] MEDS ORDERED: hydrALAZINE 20 MG/ML VIAL IVP PRN (10:45)
--- NOTE | 2020-01-23 10:48 | NUR ---
PATIENT IS ABLE TO REPOSITION HERSELF. LEFT-SIDE LYING AT THIS TIME.
[2020-01-23] MEDS ORDERED: CALCIUM ACETATE 667 MG TAB PO SCH (10:53)
--- NOTE | 2020-01-23 11:10 | NUR ---
SCHEDULED MEDICATIONS GIVEN. PATIENT TOLERATED WELL. CHECKED BLOOD SUGAR, 145. NO ACTION NEEDED. PATIENT DENIES PAIN AT THIS TIME. SAFETY MEASURES IN PLACE. WILL CONTINUE TO MONITOR.
--- NOTE | 2020-01-23 11:20 | NUR ---
STRICT I&O SIGN POSTED ON THE DOOR. TRAILER SECTIONS ASSEMBLER AWARE.
--- NOTE | 2020-01-23 13:04 | NUR ---
SCHEDULED MEDICATIONS GIVEN ORDERED. PATIENT TOLERATED WELL. WILL CONTINUE TO MONITOR.
--- NOTE | 2020-01-23 13:20 | NUR ---
PATIENT IS OFF UNIT FOR SURGERY
[2020-01-23] MEDS ORDERED: BUPIVACAINE-MPF 0.25% 30 ML VIAL INJ ONE (13:21)
[2020-01-23] MEDS ORDERED: IPRATROPIUM 0.02% 0.5 MG/2.5 ML NEBU INH ONE (13:37)
[2020-01-23] MEDS ORDERED: ALBUTEROL 0.083% 2.5 MG/3 ML NEBU INH ONE (13:37)
[2020-01-23] MEDS ORDERED: ceFAZolin 1,000 MG VIAL ONE (13:39)
[2020-01-23] MEDS ORDERED: ALBUTEROL 0.083% 2.5 MG/3 ML NEBU INH SCH (13:44)
[2020-01-23] MEDS ORDERED: IPRATROPIUM 0.02% 0.5 MG/2.5 ML NEBU INH SCH (13:46)
[2020-01-23] MEDS ORDERED: SUCCINYLCHOLINE CHLORIDE 200 MG/10 ML VIAL IVP ONE (14:05)
[2020-01-23] MEDS ORDERED: SEVOFLURANE 250 ML BTL INH ONE (14:05)
[2020-01-23] MEDS ORDERED: ROCURONIUM 50 MG/5 ML VIAL IV ONE (14:05)
[2020-01-23] MEDS ORDERED: PROPOFOL 200 MG/20 ML VIAL IV ONE (14:05)
[2020-01-23] MEDS ORDERED: MIDAZOLAM 2 MG/2 ML VIAL ONE (14:05)
[2020-01-23] MEDS ORDERED: METOCLOPRAMIDE 10 MG/2 ML INJ VIAL ONE (14:05)
[2020-01-23] MEDS ORDERED: HETASTARCH 6% 500 ML IV ONE (14:09)
[2020-01-23] MEDS: DEXT 5% / NACL 0.9% 500 ML IV SCH ×3 (14:45→23:05)
--- NOTE | 2020-01-23 15:40 | NUR ---
RETURNED FROM SURGERY. PER OR NURSE, SURGERY WAS CANCELLED BECAUSE PATIENT BECAME HYPOTENSIVE. BP: 114/61, HR 88, TEMP 97.3, RESP 17, UNLABORED. O2SAT 86-88%. PLACED PATIENT ON 2L O2 VIA NC. DOCTOR AALIYAH IS AWARE.
--- NOTE | 2020-01-23 15:46 | NUR ---
D5NS AT 120 ML/HR IS RUNNING PER MD ORDER.
--- NOTE | 2020-01-23 15:48 | NUR ---
OWEN CATHETER WAS INSERTED IN OR. NO URINE OUTPUT NOTED IN THE BAG.
[2020-01-23 16:00] VITALS: BP 105/55
--- NOTE | 2020-01-23 16:21 | NUR ---
BLADDER SCANNED: 93 ML.
--- NOTE | 2020-01-23 16:25 | NUR ---
FINGERSTICK BLOOD SUGAR: 157. WILL GIVE INSULIN COVERAGE
[2020-01-23] MEDS: INSULIN LISPRO SLIDING SCALE 100 UNITS/ML VIAL SUBQ PRN ×2 (16:36→21:11)
--- NOTE | 2020-01-23 16:37 | NUR ---
GIVEN 2 UNITS OF INSULIN FOR BLOOD SUGAR 154. PATIENT TOLERATED WELL
--- NOTE | 2020-01-23 16:47 | NUR ---
RECHECKED VS. BP: 101/61, HR 88, O2SAST 93% ON 2L O2 VIA NC. DENIES PAIN. AFEBRILE, TEMP 97.4. RESPIRATIONS OF 15, UNLABORED. BED IN LOW POSITION. CALL LIGHT IS WITHIN REACH. WILL CONTINUE TO MONITOR.
--- NOTE | 2020-01-23 16:54 | NUR ---
MARCE, SISTER, WANTS TO BE NOTIFIED WHEN AND WHERE PATIENT IS GOING TO BE TRANSFERRED FOR HIGHER LEVEL OF CARE. PHONE NUMBER [phone].
--- NOTE | 2020-01-23 16:59 | NUR ---
MARYLIN FROM [facility] CALLED AND ASKING INFORMATION REGARDING THE PATIENT. I TRANSFERRED THE CALL TO DR. FISCHER TO WHAT NUMBER WILL THEY CONTACT THE DOCTOR.
--- NOTE | 2020-01-23 18:13 | NUR ---
PATIENT ASLEEP IN BED, RISE AND FALL OF CHEST NOTED. NO DISTRESS NOTED. WILL CONTINUE TO MONITOR.
--- NOTE | 2020-01-23 18:22 | NUR ---
RECEIVED A CALL FROM OLIVER TYLER/NURSE AT [facility]. SHE LEFT PHONE NUMBER [phone] EXT [phone] (AKIKO RN), EXT [phone] (MONI QUARLES). WILL NOTIFY OLIVER.
--- NOTE | 2020-01-23 18:34 | NUR ---
CALLED BANG BOYD TO INFORM ABOUT NAYELI BOYD/NURSE FROM [facility] CALL, NO ANSWER. PHONE #[phone] EXT [phone] (AKIKO, RN), EXT [phone] (MONI QUARLES). WILL ENDORSE TO ASSISTIVE TECHNOLOGY SPECIALIST.
--- NOTE | 2020-01-23 19:08 | NUR ---
ENDORSED PATIENT TO MEDICAL DOCTOR MD/MEDICAL DIRECTOR FOR CONTINUITY OF CARE. MANAGER POOL FROM [facility], NAYELI CALLED REGARDING PATIENT TRANSFER. ALSO PLEASE NOTIFY THE SISTER, MARCE ONCE THERE IS A PLAN AND WE KNOW WHERE SHE IS BEING TRANSFERRED TO.
--- NOTE | 2020-01-23 19:09 | NUR ---
RECD. RESTING IN BED SLEEPING COMFORTABLY. OPENS EYES WHEN INQUIRED HOW SHE IS, STATED OK AND WENT BACK TO SLEEP AGAIN. RESPIRATION EVEN AND UNLABORED. ON 02 AT 2 LITERS VIA N/C, 02 SAT - 100%.IV OF D5 NS AT 120 ML/HR INFUSING, WITH F/C, NO URINE FLOWING IN THE F/C BAG, WILL MONITOR FOR OUTPUT. NO APPEARANCE OF PAIN NOTED, FLACC -0.
--- NOTE | 2020-01-23 19:18 | NUR ---
OLIVER WHARTON OF [facility] , CALLED AND GAVE A LIST OF HOSPITAL FOR HLOC. 1. [facility] 2. [facility] 3. [facility] 4. [facility] ([place] [place]) [phone] 5. [facility] [phone] 6. [facility] 7. [facility] 8. [facility] 9. [facility]
--- NOTE | 2020-01-23 19:57 | NUR ---
Patient's Plan of Care was discussed and reviewed with TURKEY PINNER: MARISELA GALINDO
[2020-01-23 20:00] VITALS: BP 102/53
--- NOTE | 2020-01-23 20:11 | NUR ---
[facility] called, stated no bed
--- NOTE | 2020-01-23 20:12 | NUR ---
[facility] called, wanted to talk to MD for the reason to tx, transfer to Dr Johnson, Dr Johnson spoke with [facility] transfer center, stated pt is stable and not emergency transfer
--- NOTE | 2020-01-23 20:24 | NUR ---
[facility] and transfer the call to Dr Johnson. Dr [facility]
--- NOTE | 2020-01-23 20:25 | NUR ---
INQUIRED TO DR. CLARK, IF PATIENT CAN TAKE HER NIGHT MEDICATIONS, STATED NPO EXCEPT MEDICATIONS.
--- NOTE | 2020-01-23 20:35 | NUR ---
INFORMED PATIENT REGARDING POSSIBLE TRANSFER TO [facility] T[facility].
[2020-01-23] MEDS: QUEtiapine FUMARATE 100 MG TAB PO SCH (20:43)
[2020-01-23] MEDS: MONTELUKAST SODIUM 10 MG TAB PO SCH (20:44)
--- NOTE | 2020-01-23 20:50 | NUR ---
[facility] called, stated decline to take patient, not an emergency transfer
--- NOTE | 2020-01-23 20:57 | NUR ---
SPOKE TO DR CLARK IF WE CAN PUT PT ON TELEMETRY FOR CLOSE MONITORING, STATED OK TO PUT PT ON TELE, MADE AWARE ALSO OF 10ML URINE OUTPUT ON THE OWEN CATHETER SINCE START OF SHIFT, ORDERED CBC AND CMP NOW, MARISELA MIRANDA MADE AWARE.
--- NOTE | 2020-01-23 21:02 | NUR ---
VOMITED 100 ML OF GREENISH FLUID, MEDICATED WITH ZOFRAN 4 MG. IVP BY CHARGE NURSE HENRI.
--- NOTE | 2020-01-23 21:15 | NUR ---
VERY MINIMAL URINE OUTPUT, DR. CLARK ORDERED BMP.
[2020-01-23 21:31] LABS: BASOPHILS % (AUTO) 0.3 % (0.0-2.0); EOSINOPHILS # (AUTO) 0.1 K/uL (0-0.4); EOSINOPHILS % (AUTO) 1.8 % (0.0-4.0); HEMATOCRIT 31.2 % (36-48); HEMOGLOBIN 10.6 g/dL (12.0-16.0); LYMPHOCYTES # (AUTO) 0.6 K/uL (2.5-16.5); MEAN CORPUSCULAR HEMOGLOBIN 32 pg (27-31); MEAN CORPUSCULAR HGB CONC 34 g/dL (33-37); MEAN CORPUSCULAR VOLUME 93.4 fL (80-94); MONOCYTES # (AUTO) 0.8 K/uL (0.8-1.0); MONOCYTES % (AUTO) 9.7 % (1.7-9.3); NEUTROPHILS # (AUTO) 6.4 K/uL (1.8-7.7); NEUTROPHILS % (AUTO) 80.2 % (42.2-75.2); PLATELET COUNT (AUTO) 190 K/uL (140-450); RED BLOOD CELL COUNT(AUTO) 3.34 MIL/uL (4.20-5.40); RED CELL DISTRIBUTION WIDTH 13.4 % (11.6-13.7)
--- NOTE | 2020-01-23 21:35 | NUR ---
NO N/V NOTED, SLEEPING COMFORTABLY IN BED.
--- NOTE | 2020-01-23 21:37 | NUR ---
MARKO Ortiz called, stated that I have to help calling the hospitals for transfer, told MARKO Ortiz rn field case manager that some hospital called already, [facility]; [facility] rn field case manager talked to MD already; [facility] called and stated no bed; [facility] decline for transfer. MARKO Ortiz told me to call WILLIMAS and Tera, will call WILLIAMS and Tera
[2020-01-23 22:21] LABS: ALBUMIN 2.8 g/dL (3.4-5.0); ANION GAP 15.4 (8-16); CARBON DIOXIDE 24.4 mmol/L (21-32); POTASSIUM 4.8 mmol/L (3.5-5.1)
--- NOTE | 2020-01-23 22:24 | NUR ---
Called [facility] [phone], spoke with transfer center, stated no bed at this time
[2020-01-23 22:25] LABS: CREATININE 5.8 mg/dL (0.6-1.3)
--- NOTE | 2020-01-23 22:25 | NUR ---
DR. SANTANA INFORMED CREATININE IS 5.8, CAME TO CHECK PATIENT, BLADDER SCAN MADE BY CHARGE NURSE HENRI, 56 ML.
--- NOTE | 2020-01-23 22:31 | NUR ---
Called [facility] (phone [phone]; fax [phone]), talked to Transfer Center, stated to fax facesheet, H&P note from sx, imaging, H&P admitting; and they will review it; also stated if the transfer go through, it will not happen tonight. Faxed all the inquiries to [phone]
--- NOTE | 2020-01-23 22:40 | NUR ---
VOMITED 100 ML OF GREENISH FLUID, CLEANSED AND MADE COMFORTABLE IN BED.
--- NOTE | 2020-01-23 22:45 | NUR ---
INFORMED DR. CLARK, PATIENT VOMITED AGAIN, INSTRUCTED TO CONTINUE TO MONITOR AND INFORM HIM.
[2020-01-23] MEDS: NACL 0.9% 1,000 ML IV ONE ×2 (22:47→23:11)
--- NOTE | 2020-01-23 23:11 | NUR ---
NS 1 LITER BOLUS STARTED PER DR. CLARK ORDER.
[2020-01-24] VITALS (8 sets, daily range): BP systolic 89–122; BP diastolic 44–77
[2020-01-24] MEDS: DEXT 5% / NACL 0.9% 500 ML IV SCH ×2 (00:12→03:15)
[2020-01-24] MEDS: ONDANSETRON 4 MG/2 ML VIAL IVP PRN (01:03)
--- NOTE | 2020-01-24 01:03 | NUR ---
VOMITED GREENISH FLUID 180 ML. MEDICATED WITH ZOFRAN 4 MG IVP BY CHARGE NURSE
--- NOTE | 2020-01-24 01:35 | NUR ---
NO N/V NOTED, SLEEPING COMFORTABLY IN BED. INFORMED DR. CLARK, URINE OUTPUT IN THE F/C SCANTY, APPROXIMATELY 20 ML. WILL CONTINUE TO MONITOR.
--- NOTE | 2020-01-24 03:30 | NUR ---
RESTING IN BED, STILL NO ADDITIONAL URINE OUTPUT NOTED IN THE F/C BAG. BP - 103/46, HR -84.
--- NOTE | 2020-01-24 04:10 | NUR ---
VOMITED 250 ML OF GREENISH FLUID. ICE CHIPS GIVEN.
[2020-01-24] MEDS: ACETAMINOPHEN 325 MG TAB PO PRN ×2 (04:18→20:14)
--- NOTE | 2020-01-24 04:18 | NUR ---
TEMPERATURE - 100.9 F, MEDICATED WITH TYLENOL PER MD ORDER. COOLING MEASURES GIVEN.
--- NOTE | 2020-01-24 04:20 | NUR ---
INFORMED DR. CLARK, PATIENT WAS GIVEN TYLENOL AND COOLING MEASURES.
[2020-01-24] MEDS: GABAPENTIN 100 MG CAP PO SCH ×3 (05:00→21:35)
[2020-01-24] MEDS: BLOOD GLUCOSE MONITORING 1 DEV DEV FS SCH ×4 (05:44→21:00)
[2020-01-24] MEDS: INSULIN LISPRO SLIDING SCALE 100 UNITS/ML VIAL SUBQ PRN ×3 (05:49→22:27)
--- NOTE | 2020-01-24 05:50 | NUR ---
INFORMED DR. CLARK, TOTAL URINE OUTPUT IS 20 ML.
--- NOTE | 2020-01-24 05:55 | NUR ---
INFORMED DR. CLARK, PATIENT VOMITED GREENISH FLUID FOUR TIMES DURING SHIFT.
--- NOTE | 2020-01-24 06:08 | NUR ---
RESTING COMFORTABLY SLEEPING IN BED, AFEBRILE - 98.2 F.
--- NOTE | 2020-01-24 06:22 | NUR ---
FOLLOW UP WITH JACKIE, RADIOLOGY FOR CT OF ABD/PELVIS WITHOUT CONTRAST, WILL COME AFTER FINISHES WITH ICU PATIENT.
--- NOTE | 2020-01-24 07:15 | NUR ---
TO RADIOLOGY VIA BED FOR CT OF ABD AND PELVIS.
--- NOTE | 2020-01-24 07:20 | NUR ---
ENDORSED TO MONI DUVALL FOR CONTINUITY OF CARE.
--- NOTE | 2020-01-24 07:25 | NUR ---
RECEIVED BEDSIDE REPORT FROM NIGHTSHIFT NURSE. PT RESTING IN BED. ABLE TO MAKE NEEDS KNOWN. RESPIRATIONS EVEN AND UNLABORED WITH NO SOB OR RESPIRATORY DISTRESS. SKIN WARM AND DRY TO TOUCH. IV SITE IN LAC 20G IS CLEAN, DRY, AND INTACT. SAFETY MEASURES IN PLACE. WILL CONTINUE TO MONITOR
[2020-01-24 07:26] LABS: CARBON DIOXIDE 22.9 mmol/L (21-32); POTASSIUM 4.9 mmol/L (3.5-5.1)
--- NOTE | 2020-01-24 07:27 | NUR ---
RECEIVED CRITICAL LAB FROM CHEMISTRY. CR 6.6, BUN 50, AND CA 7.6. RESIDENT DR. FISCHER MADE AWARE. SAFETY MEASURES IN PLACE. WILL CONTINUE TO MONITOR
[2020-01-24 07:29] LABS: CREATININE 6.6 mg/dL (0.6-1.3)
[2020-01-24] MEDS: DEXT 5% /NACL 0.9% 1,000 ML IV SCH ×3 (07:29→21:30)
[2020-01-24 07:35] LABS: BASOPHILS # (AUTO) 0.2 K/uL (0.00-0.22); BASOPHILS % (AUTO) 2.1 % (0.0-2.0); EOSINOPHILS # (AUTO) 0.1 K/uL (0-0.4); EOSINOPHILS % (AUTO) 1.3 % (0.0-4.0); HEMATOCRIT 30.3 % (36-48); HEMOGLOBIN 10.3 g/dL (12.0-16.0); LYMPHOCYTES # (AUTO) 0.6 K/uL (2.5-16.5); LYMPHOCYTES % (AUTO) 7.5 % (20.5-51.1); MEAN CORPUSCULAR HEMOGLOBIN 32 pg (27-31); MEAN CORPUSCULAR HGB CONC 34 g/dL (33-37); MEAN CORPUSCULAR VOLUME 93.2 fL (80-94); NEUTROPHILS # (AUTO) 5.7 K/uL (1.8-7.7); NEUTROPHILS % (AUTO) 76.1 % (42.2-75.2); PLATELET COUNT (AUTO) 186 K/uL (140-450); RED BLOOD CELL COUNT(AUTO) 3.25 MIL/uL (4.20-5.40); RED CELL DISTRIBUTION WIDTH 13.8 % (11.6-13.7); WHITE BLOOD COUNT (AUTO) 7.5 K/uL (4.8-10.8)
[2020-01-24 07:44] LABS: MAGNESIUM 1.8 mg/dL (1.8-2.4); PHOSPHORUS 6.3 mg/dL (2.5-4.9)
--- NOTE | 2020-01-24 07:48 | NUR ---
RECEIVED CRITICAL CALL FROM RADIOLOGY WITH RESULTS FROM CT ABD WITH CONTRAST. SMALL BOWEL OBSTRUCTION FOUND WELL HAS UMBILICAL HERNIA. RESIDENT AALIYAH MUNOZ MADE AWARE. SAFETY MEASURES IN PLACE. WILL CONTINUE TO MONITOR
[2020-01-24] MEDS: GEMFIBROZIL 600 MG TAB PO SCH ×2 (08:00→17:00)
--- NOTE | 2020-01-24 08:45 | NUR ---
NG INSERTED PRESCRIBED PER MD ORDER. PT TOLERATED WELL. EDUCATE PT ON PURPOSE OF NG TUBE TO SUCTION. 1,200 OUTPUT RESULTED WITH GREEN COLOR. SAFETY MEASURES IN PLACE. WILL CONTINUE TO MONITOR
--- NOTE | 2020-01-24 08:50 | NUR ---
OBTAINED CONSENT FOR JANAE CATH AND HERNIA REPAIR. DR. FISCHER AT BEDSIDE EXPLAINING TO PT. SAFETY MEASURES IN PLACE. WILL CONTINUE TO MONITOR
[2020-01-24] MEDS: LACTATED RINGERS 500 ML IV SCH ×2 (08:52→08:56)
--- NOTE | 2020-01-24 08:56 | NUR ---
ADMINISTERED SCHED MED PRESCRIBED PER MD ORDER. PT TOLERATED WELL. MEDICATION EDUCATION PERFORMED. PT VERBALIZED UNDERSTANDING. SAFETY MEASURES IN PLACE. WILL CONTINUE TO MONITOR
[2020-01-24] MEDS ORDERED: NACL 0.9% 500 ML IV SCH (09:05)
--- NOTE | 2020-01-24 09:30 | NUR ---
ENDORSED AT BEDSIDE TO ICU NURSE SREEDHAR. PT RESTING IN BED. ABLE TO MAKE NEEDS KNOWN. RESPIRATIONS EVEN AND UNLABORED WITH NO SOB OR RESPIRATORY DISTRESS. SKIN WARM AND DRY TO TOUCH. PT IS STABLE
--- NOTE | 2020-01-24 09:45 | NUR ---
REPORT RECEIVED FROM NURSE DUVALL. PT WAS TRANSFERRED TO ICU DUE TO LOW BLOOD PRESSURE OF 93/48. PER MONI DUVALL BOLUS OF LR 500ML WAS GIVEN. BEFORE TRANSFER PT'S BLOOD PRESSURE was at 107/51. BEDSIDE XRAY WAS TAKEN TO CONFIRM PLACEMENT OF NG TUBE. PT IS AWAKE AND RESPONSIVE. PT WAS MOVED TO ICU. BLOOD PRESSURE NOTED AT 102/58. NG TUBE CONNECTED TO INTERMITTENT LOW SUCTION. F/C IN PLACE. IV LINE IN PLACE. PT IS BEING MONITORED AT THIS TIME. SAFETY MEASURES IN PLACE. WILL CONTINUE TO MONITOR.
--- NOTE | 2020-01-24 10:01 | NUR ---
CALLED RESIDENT DR JERRY ASKED IF PT NEEDS TO BE ON MIDODRINE AND IF PT NEEDS CALCIUM, PT'S PHOS IS 6.3, CA 7.6. BP 93/56. DR JERRY SAID WILL PASS THE MESSAGE TO DR FISCHER.
[2020-01-24] MEDS: busPIRone 5 MG TAB PO SCH ×2 (10:20→21:35)
[2020-01-24] MEDS: DOCUSATE SODIUM 100 MG GELCAP PO SCH ×2 (10:20→21:00)
[2020-01-24] MEDS: FAMOTIDINE 20 MG TAB PO SCH (10:20)
[2020-01-24] MEDS: ARIPiprazole 10 MG TAB PO SCH (10:24)
--- NOTE | 2020-01-24 10:30 | NUR ---
NG SUCTIONING TURNED OFF. AM MEDICATIONS GIVEN THRU NG TUBE. SYS BLOOD PRESSURE AT 93. PT IS AWAKE AND RESPONSIVE.
[2020-01-24] MEDS ORDERED: MIDODRINE 5 MG TAB PO SCH (11:05)
--- NOTE | 2020-01-24 11:51 | NUR ---
PT IS OFF OF UNIT TO OR FOR PROCEDURE.
[2020-01-24] MEDS ORDERED: PIPERACILLIN/TAZOBACTAM 3.375 GM in DEXTROSE 5% 50 ML IV SCH (12:00)
[2020-01-24] MEDS ORDERED: BUPIVACAINE-MPF/EPI 0.25% 30 ML VIAL INJ ONE (12:06)
[2020-01-24] MEDS ORDERED: LIDOCAINE 1% 500 MG/50 ML VIAL ONE (12:06)
[2020-01-24] MEDS ORDERED: DEXAMETHASONE 4 MG/ML VIAL ONE (12:08)
[2020-01-24] MEDS ORDERED: fentaNYL 0.05 MG/ML VIAL ONE (12:08)
[2020-01-24] MEDS ORDERED: GLYCOPYRROLATE 0.2 MG/ML VIAL ONE (12:08)
[2020-01-24] MEDS ORDERED: PROPOFOL 200 MG/20 ML VIAL IV ONE (12:08)
[2020-01-24] MEDS ORDERED: NEOSTIGMINE 1:1000 10 MG/10 ML VIAL ONE (12:08)
[2020-01-24] MEDS ORDERED: SUCCINYLCHOLINE CHLORIDE 200 MG/10 ML VIAL IVP ONE (12:08)
[2020-01-24] MEDS ORDERED: DESFLURANE 240 ML BTL INH ONE (12:08)
[2020-01-24] MEDS ORDERED: ONDANSETRON 4 MG/2 ML VIAL ONE (12:08)
[2020-01-24] MEDS ORDERED: ROCURONIUM 50 MG/5 ML VIAL IV ONE (12:08)
--- NOTE | 2020-01-24 14:24 | NUR ---
01/24/20 RD INITIAL ASSESSMENT COMPLETED PLEASE REFER TO NUTRITION ASSESSMENT UNDER CARE ACTIVITY FOR ESTIMATED NUTRITIONAL NEEDS. 1. CONTINUE NPO MEDICALLY NECESSARY 2. IF/WHEN MEDICALLY STABLE ADVANCE TO CLEAR LIQUID DIET AND GRADUALLY TO A SOFT LOW FIBER AND RENAL DIET TOLERATED 3. CONSIDER TPN/PPN IF PATIENT IS TO STAY NPO FOR >3 DAYS 4. RECOMMEND NEPRO ORAL SUPPLEMENT BID 5. RECOMMEND NEPHRO-RUBI DAILY 6. RD TO FOLLOW-UP 2-3 DAYS, HIGH RISK GUNNER LARKIN RD
--- NOTE | 2020-01-24 14:38 | NUR ---
PT CAME BACK TO UNIT. VITAL SIGNS NOTED BP: 122/77 P: 113, O2:97, R: 20. NOTED WITH RIGHT IJ JANAE CATH. DRESSING ON ABDOMEN IS DRY AND INTACT. NO BLEEDING NOTED. WILL CONTINUE TO MONITOR.
[2020-01-24] MEDS: PIPERACILLIN/TAZOBACTAM 2.25 GM in DEXTROSE 5% 50 ML IV SCH ×2 (14:52→21:00)
[2020-01-24] MEDS ORDERED: MORPHINE SULFATE 2 MG/ML SYR IVP PRN (14:55)
[2020-01-24] MEDS ORDERED: MORPHINE SULFATE 2 MG/ML SYR ONE (14:58)
--- NOTE | 2020-01-24 16:34 | NUR ---
PT'S BLOOD PRESSURE IS FLUCTUATING SYSTOLIC BETWEEN 120 AND 80. O2 SATS AT 93. NO COMPLAINS OF PAIN. WILL CONTINUE TO MONITOR. CALL LIGHT WITHIN REACH.
--- NOTE | 2020-01-24 16:37 | NUR ---
NOTIFIED DIALYSIS SHAIKH, PT NEEDS DIALYSIS TODAY, ORDER WAS PUT IN BY DR SIFUENTES. PT HAS JANAE DE [place].
--- NOTE | 2020-01-24 18:19 | NUR ---
PER ORAL MEDS NOT GIVEN TODAY. PT IS ON NG INTERMITTENT SUCTIONING. PER DR SIFUENTES WANTED PT ON NPO. NOTIFIED DR FISCHER.
--- NOTE | 2020-01-24 19:16 | NUR ---
SHIFT REPORT GIVEN TO EGG CRATER NURSE. PT IS ON DIALYSIS NOW. VITAL SIGNS IN NORMAL LEVELS. PT RESPONSIVE TO VERBAL STIMULI. CALL LIGHT IN REACH.
--- NOTE | 2020-01-24 19:20 | NUR ---
REVEIVED PT FROM DAY SHIFT RN, PT RESTING IN BED, AROUSABLE TO VOICE, RECEIVING DIALYSIS WITH DIALYSIS NURSE AT BEDSIDE, PT IS ON 10L OS SIMPLE FACE MASK, OWEN CATHETER IN PLACE, DRAINING YELLOW URINE, PT HAS LAC AND LEFT FOREARM PERIPHERAL IV 20 G, LING SOUNDS DIMINISHED, S1 AND S2 HEART SOUNDS HEARD, SURGICAL SITE DRY AND INTACT PULSES PALPABLE UPPER AND LOWER EXTREMITIES, VITALS WITHIN NORMAL LIMITS, WITH SAFETY PROTOCOLS IN PLACE WILL CONTINUE TO MONITOR PT
[2020-01-24] MEDS: MONTELUKAST SODIUM 10 MG TAB PO SCH (21:34)
[2020-01-24] MEDS: QUEtiapine FUMARATE 100 MG TAB PO SCH (21:34)
--- NOTE | 2020-01-24 23:20 | NUR ---
REPORT TO DR BAIG PT HAS EPISODE LOW BP 85/57,HR 84. MD COME TO ASSESS THE PT. MD ALSO AWARE PT DONJE WITH DIALYSIS AT 9:40 WITH 1.1 LITER TAKEN OUT.ON IVF D5IN NS AT 150 CC/HR. PER MD TO CONTINUE CLOSE MONITORING PT.
--- NOTE | 2020-01-24 23:44 | NUR ---
TRANSFERRED PT CARE TO NURSE BP GREGOR PHAN DR. IS AWARE
--- NOTE | 2020-01-24 23:45 | NUR ---
RECEIVED BEDSIDE REPORT FROM IZAIAH MONTENEGRO. PATIENT IS LYING IN BED, RESTING WITH EYES CLOSED. ALERT AND VERBAL WHEN SPOKEN TO. NO SOB OR DISTRESS NOTED. ON 10LPM VIA FACE MASK, TOLERATING WELL WITH O2 SAT OF 97-98%. IV ACCESS ON LEFT AC 20 GAUGE, PATENT, INTACT AND INFUSING WELL WITH D5NS AT 150ML/HR. AND RIGHT FOREARM 20 GAUGE, PATENT AND INTACT. OWEN CATHETER IN PLACE, DRAINING LIGHT SENA COLORED URINE WITH 600 ML IN THE BAG. NGT IN PLACE WITH INTERMITTENT SUCTIONING, DRAINING DARK GREEN SECRETIONS. PATIENT NOTED WITH SURGICAL INCISION ON ABDOMEN COVERED WITH DRESSING. PATIENT CONNECTED TO BEDSIDE MONITOR. CLOSE MONITORING FOR LOW BP, MD AWARE. SCD IN PLACE. BED IN LOW, BED LOCKED, IN SEMI FOWLERS POSITION. CALL LIGHT WITHIN PATIENT REACH. WILL CONTINUE TO MONITOR PATIENT CLOSELY. Addendum: 01/25/20 at 0345 by Magi Eric RN PATIENT NOTED WITH RIGHT IJ JANAE CATHETER FOR DIALYSIS.
[2020-01-25] VITALS: BP 82/56
--- NOTE | 2020-01-25 01:01 | NUR ---
PATIENT REQUESTING ICE CHIPS FOR DRY MOUTH, MD AWARE AND SAID IT WAS OKAY.
--- NOTE | 2020-01-25 01:10 | NUR ---
DR SANTANA AWARE PT THAT PT EKG SHOWS EPISODE OF PVCS
[2020-01-25 02:00] VITALS: BP 83/52
--- NOTE | 2020-01-25 02:41 | NUR ---
DR. CLARK ASSESSED PATIENT FOR LOW BP AND MAP BELOW 65. HE SAID SINCE PATIENT IS SLEEPING TO MONITOR CLOSELY AND NOTIFY HIM IF MAP GOES BELOW 60. VITALS AT THIS TIME BP 86/47 (MAP 63), HR 83, O2 96%, RR 22, TEMP 98. PATIENT IS ALERT AND RESPONDS, ABLE TO MOVE ARMS UP AND DOWN, AND LIFT LEGS.
[2020-01-25 04:00] VITALS: BP 97/50
--- NOTE | 2020-01-25 04:15 | NUR ---
PATIENT WAS ASKING FOR ICE CHIPS FOR HER DRY THROAT. GAVE HER 2 SMALL SCOOPS. NO SOB OR DISTRESS NOTED.
[2020-01-25] MEDS: GABAPENTIN 100 MG CAP PO SCH ×3 (04:30→21:00)
[2020-01-25] MEDS: PIPERACILLIN/TAZOBACTAM 2.25 GM in DEXTROSE 5% 50 ML IV SCH ×3 (04:30→20:08)
[2020-01-25] MEDS: INSULIN LISPRO SLIDING SCALE 100 UNITS/ML VIAL SUBQ PRN ×2 (05:52→20:10)
[2020-01-25 06:00] VITALS: BP 90/49
[2020-01-25 06:10] LABS: BASOPHILS % (AUTO) 0.2 % (0.0-2.0); EOSINOPHILS % (AUTO) 0.4 % (0.0-4.0); HEMATOCRIT 28.8 % (36-48); HEMOGLOBIN 9.8 g/dL (12.0-16.0); LYMPHOCYTES # (AUTO) 0.5 K/uL (2.5-16.5); MEAN CORPUSCULAR HEMOGLOBIN 32 pg (27-31); MEAN CORPUSCULAR HGB CONC 34 g/dL (33-37); MEAN CORPUSCULAR VOLUME 92.9 fL (80-94); MONOCYTES # (AUTO) 0.7 K/uL (0.8-1.0); MONOCYTES % (AUTO) 11.7 % (1.7-9.3); NEUTROPHILS # (AUTO) 4.4 K/uL (1.8-7.7); NEUTROPHILS % (AUTO) 78.7 % (42.2-75.2); PLATELET COUNT (AUTO) 176 K/uL (140-450); RED CELL DISTRIBUTION WIDTH 13.7 % (11.6-13.7); WHITE BLOOD COUNT (AUTO) 5.6 K/uL (4.8-10.8)
[2020-01-25] MEDS ORDERED: ALBUTEROL SULFATE/IPRATROPIU 3 ML SOL IH PRN (06:20)
[2020-01-25] MEDS: DEXT 5% /NACL 0.9% 1,000 ML IV SCH ×4 (06:26→22:58)
--- NOTE | 2020-01-25 06:27 | NUR ---
PATIENT HAD A BLOOD GLUCOSE RESULT OF 159 WITH 2 UNITS OF REGULAR HUMALOG INSULIN GIVEN. WILL CONTINUE TO MONITOR PATIENT.
[2020-01-25] MEDS: BLOOD GLUCOSE MONITORING 1 DEV DEV FS SCH ×4 (06:38→20:09)
[2020-01-25 07:06] LABS: ANION GAP 11.6 (8-16); CARBON DIOXIDE 27.4 mmol/L (21-32); CREATININE 3.5 mg/dL (0.6-1.3)
[2020-01-25 07:09] LABS: MAGNESIUM 1.5 mg/dL (1.8-2.4); PHOSPHORUS 4.3 mg/dL (2.5-4.9)
[2020-01-25] MEDS: GEMFIBROZIL 600 MG TAB PO SCH ×2 (08:00→17:09)
[2020-01-25] MEDS ORDERED: MAG SULF 2000 MG/WATER PREMIX 50 ML IV SCH (09:00)
[2020-01-25] MEDS: FAMOTIDINE 20 MG TAB PO SCH (09:00)
[2020-01-25] MEDS: ARIPiprazole 10 MG TAB PO SCH (09:00)
[2020-01-25] MEDS: busPIRone 5 MG TAB PO SCH ×2 (09:00→21:00)
[2020-01-25] MEDS: DOCUSATE SODIUM 100 MG GELCAP PO SCH ×2 (09:00→21:00)
--- NOTE | 2020-01-25 10:29 | NUR ---
SEEN BY DR. SIFUENTES AT BEDSIDE HE SAID PATIENT CAN REYURN TO TELE FOR COTINUEOUS CARE.
--- NOTE | 2020-01-25 10:45 | NUR ---
SPOKE TOMaster JAMES PATIENT CAN EAT WHENT SHE PASSING GAS.
--- NOTE | 2020-01-25 12:00 | NUR ---
PT. MOTHER CALLED TO FIND OUT HER CONDITION . IN FORM HER THAT PT. WILL BE TRANSFER TO TELE.
--- NOTE | 2020-01-25 12:30 | NUR ---
SEEN BY DR. WHITNEY AT BED SIDE NO ORDER CHANGED.
[2020-01-25] MEDS: ALBUTEROL SULFATE/IPRATROPIU 3 ML SOL IH SCH ×2 (13:00→19:00)
--- NOTE | 2020-01-25 13:00 | NUR ---
TRANSFER TO ROOM 110B IN BED.PT. WAS AWAKE AND ALERT DURING TRANSFER, REPORT TIVE TO SIOBHAN AT BED SIDE.
--- NOTE | 2020-01-25 13:20 | NUR ---
RECEIVED TRANSFER FROM ICU TO ROOM 110B, ASSISTED TO TRANSFER TO BED WITH JANITOR CLEANER AND EMT. PT IS AWAKE AND ABLE TO MAKE NEEDS KNOWN AND COMMUNICATE APPROPRIATELY. RESPIRATION EVEN AND UNLABORED ON FACE MASK 12 LPM, SPO2 AT 100%. DENIED PAIN, SOB AND DIZZINESS. IV ON RFA 20G, CLEAN AND INTACT, SALINE LOCK. LAC 20G, CLEAN AND INTACT, WARP AROUND WITH KERLIX, INFUSING PER MD ORDER. NG TUBE IN PLACE. JANAE CATH IN PLACE. OWEN IN PLACE AND DRAINING YELLOW URINE WITH GRAVITY. DRESSING CLEAN AND INTACT ON ABDOMINAL AREA. SCD ON BILATERALLY. PT IS BEDREST AT THIS TIME. TELE MONITOR ATTACHED.
--- NOTE | 2020-01-25 13:55 | NUR ---
CONNECTED TO INTERMITTER SUCTIONING. VITAL SIGNS TAKEN; BP 98/49, PULSE 78, SPO2 100% WITH 12 LPM, TEMP 98.5, RR 20. PT IS RESTING ON BED AT THIS TIME. TELE MONITOR ATTACHED. BED IN LOW POSITION AND CALL LIGHT WITHIN REACH. BED ALARM ACTIVATED.
[2020-01-25] MEDS ORDERED: TPN PER PHARMACY MC PRN (14:05)
--- NOTE | 2020-01-25 14:20 | NUR ---
ADMINISTERED ZOSYN VIA IVPB AND GABAPENTIN VIS NG TUBE, MEDS EDUCATION PROVIDED TO PT AND PT SAID OK. CLAMPED NG TUBE FOR 30 MINS. PT REQUESTED TO BE CHANGED AND ICE CHIPS, PROVIDED ICE CHIPS, DIRECTOR SHIP WILL CHANGE PT. PT IS AWAKE AND WATCHING TV AT THIS TIME. NO SIGNS OF DISTRESS NOTED. TELE MONITOR ATTACHED. BED ALARM ACTIVATED. BED IN LOW POSITION AND CALL LIGHT WITHIN REACH.
--- NOTE | 2020-01-25 15:07 | NUR ---
ADMINISTERED MAG RIDER VIA IV FOR LOW MAG 1.5 FROM AM LAB, MED EDUCATION PROVIDED AND PT VERBALIZED UNDERSTANDING. PT IS AWAKE AND RESTING ON BED AT THIS TIME. TELE MONITOR ATTACHED. SAFETY MEASURES IN PLACE. BED IN LOW POSITION AND CALL LIGHT WITHIN REACH.
[2020-01-25 16:00] VITALS: BP 94/57
--- NOTE | 2020-01-25 17:10 | NUR ---
CHECKED BLOOD GLUCOSE AND RECEIVED 131, NO COVERAGE NEEDED. ADMINISTERED SCHEDULED MED VIS NG TUBE. MED EDUCATION PROVIDED AND PATIENT SAID OK. PT IS RESTING ON BED AT THIS TIME. NO SIGNS OF DISTRESS NOTED. TELE MONITOR ATTACHED. SAFETY MEASURES IN PLACE. BED ALARM ACTIVATED AND BED LOCKED.
--- NOTE | 2020-01-25 19:20 | NUR ---
RECEIVED REPORT FROM DAY SHIFT NURSE. PT IS AWAKE AND ORIENTED X 3. RESPIRATION EVEN AND UNLABORED ON FACE MASK 10 LPM. IV PATIENT AND INTACT WITH IVF INFUSING WELL. NGT TUBE IN PLACE. JANAE CATH IN PLACE. OWEN IN PLACE AND DRAINING YELLOW URINE. DRESSING CLEAN AND INTACT ON ABDOMINAL AREA. REVIEWED PLAN OF CARE TO PATIENT. VERBALIZED UNDERSTANDING. SAFETY MEASURES IN PLACE. CALL LIGHT WITHIN REACH. WILL CONTINUE TO MONITOR.
--- NOTE | 2020-01-25 19:20 | NUR ---
ENDORSED PT AT BEDSIDE TO IUSS MASTER ANALYST NURSES FOR CONTINUITY OF CARE. PT IS RESTING ON BED. PT IS IN STABLE CONDITION. TELE MONITOR ATTACHED. SAFETY MEASURES IN PLACE. BED ALARM ACTIVATED.
[2020-01-25 20:00] VITALS: BP 114/55
[2020-01-25] MEDS: MONTELUKAST SODIUM 10 MG TAB PO SCH (21:00)
[2020-01-25] MEDS: QUEtiapine FUMARATE 100 MG TAB PO SCH (21:00)
--- NOTE | 2020-01-25 21:00 | NUR ---
ALL SCHEDULED PO MEDS NOT GIVEN D/T PATIENT'S DIET STATUS IS NPO. IV ANTIBIOTIC GIVEN. WILL CONTINUE TO MONITOR.
--- NOTE | 2020-01-25 22:30 | NUR ---
PATIENT ASLEEP COMFORTABLY. NO SIGNS OF DISTRESS. CALL LIGHT WITHIN REACH. WILL CONTINUE TO MONITOR.
[2020-01-26] VITALS: BP 118/54
--- NOTE | 2020-01-26 01:00 | NUR ---
PATIENT'S ABDOMINAL DRESSING IS FALLING OFF, REINFORCED DRESSING. WILL CONTINUE TO MONITOR.
--- NOTE | 2020-01-26 01:50 | NUR ---
PATIENT STILL SLEEPING COMFORTABLY. WILL CONTINUE TO MONITOR PATIENT.
--- NOTE | 2020-01-26 03:30 | NUR ---
PATIENT AWAKE, LYING IN BED. NO DISTRESS NOTED. O2 SAT 96%. WILL CONTINUE TO MONITOR PATIENT.
[2020-01-26 04:00] VITALS: BP 126/69
[2020-01-26] MEDS: PIPERACILLIN/TAZOBACTAM 2.25 GM in DEXTROSE 5% 50 ML IV SCH ×3 (04:44→21:15)
--- NOTE | 2020-01-26 04:45 | NUR ---
RT CAME AND DECREASED O2 AT 5 LPM VIA FACEMASK. PATIENT O2 SAT AT 99%. WILL CONTINUE TO MONITOR PATIENT.
[2020-01-26] MEDS: GABAPENTIN 100 MG CAP PO SCH ×3 (05:00→21:09)
--- NOTE | 2020-01-26 05:00 | NUR ---
ALL SCHEDULED PO MEDS NOT GIVEN D/T PATIENT'S DIET STATUS IS NPO. IV ANTIBIOTIC GIVEN. WILL CONTINUE TO MONITOR.
[2020-01-26] MEDS: DEXT 5% /NACL 0.9% 1,000 ML IV SCH (06:14)
[2020-01-26 06:25] LABS: BASOPHILS % (AUTO) 0.4 % (0.0-2.0); EOSINOPHILS # (AUTO) 0.3 K/uL (0-0.4); EOSINOPHILS % (AUTO) 4.4 % (0.0-4.0); HEMOGLOBIN 9.5 g/dL (12.0-16.0); LYMPHOCYTES # (AUTO) 0.6 K/uL (2.5-16.5); LYMPHOCYTES % (AUTO) 8.7 % (20.5-51.1); MEAN CORPUSCULAR HEMOGLOBIN 32 pg (27-31); MEAN CORPUSCULAR HGB CONC 34 g/dL (33-37); MEAN CORPUSCULAR VOLUME 94.2 fL (80-94); MONOCYTES # (AUTO) 0.8 K/uL (0.8-1.0); MONOCYTES % (AUTO) 11.7 % (1.7-9.3); NEUTROPHILS # (AUTO) 5.3 K/uL (1.8-7.7); NEUTROPHILS % (AUTO) 74.8 % (42.2-75.2); PLATELET COUNT (AUTO) 190 K/uL (140-450); RED BLOOD CELL COUNT(AUTO) 2.97 MIL/uL (4.20-5.40); RED CELL DISTRIBUTION WIDTH 13.5 % (11.6-13.7); WHITE BLOOD COUNT (AUTO) 7.1 K/uL (4.8-10.8)
[2020-01-26] MEDS: BLOOD GLUCOSE MONITORING 1 DEV DEV FS SCH ×4 (06:30→21:00)
[2020-01-26 07:01] LABS: MAGNESIUM 2.2 mg/dL (1.8-2.4); PHOSPHORUS 3.1 mg/dL (2.5-4.9)
--- NOTE | 2020-01-26 07:15 | NUR ---
PATIENT IS STABLE. ENDORSED PATIENT TO DAY SHIFT NURSE FOR CONTINUITY OF CARE.
--- NOTE | 2020-01-26 07:20 | NUR ---
RECEIVED PT FROM [employer] SENIOR SERGEANT NURSES, GILBERT, PT IS AWAKE AND LYING ON THE BED WITH SIDE RAILS UP AND CALL LIGHT WITHIN REACH, PT HAS A RT IJ JANAE CATHETER IN PLACE, PERIPHERAL LINE ON THE LEFT AC G. 20 WITH IVF D5NS INFUSING AT 150ML/HR, OWEN CATHETER IN PLACE WITH 100ML DRAIN IN BAG, PT IS ON 5L O2 VIA FACE MASK, SATURATING TA 100%, NO SIGN OF DISTRESS NOTED AND WILL CONTINUE TO MONITOR PT.
[2020-01-26 07:27] LABS: ANION GAP 13.4 (8-16); CARBON DIOXIDE 23.6 mmol/L (21-32); CREATININE 2.8 mg/dL (0.6-1.3)
[2020-01-26] MEDS: ALBUTEROL SULFATE/IPRATROPIU 3 ML SOL IH SCH ×2 (07:51→13:46)
[2020-01-26 08:00] VITALS: BP 103/51
[2020-01-26] MEDS: GEMFIBROZIL 600 MG TAB PO SCH ×2 (08:00→16:21)
--- NOTE | 2020-01-26 08:40 | NUR ---
DR. SIFUENTES CALLED AND MADE A TELEPHONE ORDER TO CLAMP NG TUBING AND CHECK RESIDUAL AT 1300, IF RESIDUAL IS LESS THAN 300ML, AND NO C/O NAUSEA AND VOMITING, D/C NG TUBE AND PT CAN BE STARTED ON CLEAR LIQUID DIET. ACKNOWLEDGED AND READ BACK AND WILL CARRY OUT ORDER
[2020-01-26] MEDS: DOCUSATE SODIUM 100 MG GELCAP PO SCH ×2 (09:00→21:10)
[2020-01-26] MEDS: busPIRone 5 MG TAB PO SCH ×2 (09:00→21:11)
--- NOTE | 2020-01-26 10:10 | NUR ---
PT EVALUATION IS BEING DONE TO PT NOW. NO SIGN OF DISTRESS NOTED.
--- NOTE | 2020-01-26 10:30 | NUR ---
DR. FISCHER MADE A TELEPHONE ORDER TO HOLD OFF THE ADMINISTRATION OF THE MEDICATIONS SCHEDULED IN AM UNTIL THE 1300 EVALUATION OF THE NG TUBING, ACKNOWLEDGED AND WILL CARRY OUT ORDER.
[2020-01-26 12:00] VITALS: BP 109/57
--- NOTE | 2020-01-26 13:05 | NUR ---
RESIDUAL CHECK DONE, LESS THAN 10ML WITHDREW. PT TOLERATED WELL, DENIED OF NAUSEA. DR FISCHER NOTIFIED. RECEIVED ORDER TO D/C NGT. WILL CARRY OUT.
--- NOTE | 2020-01-26 13:28 | NUR ---
01/26/20 RD FOLLOW UP COMPLETED PLEASE REFER TO NUTRITION ASSESSMENT UNDER CARE ACTIVITY FOR ESTIMATED NUTRITIONAL NEEDS. 1. IF/WHEN MEDICALLY STABLE ADVANCE TO CLEAR LIQUID DIET AND GRADUALLY ADVANCE TO A SOFT LOW FIBER AND RENAL DIET TOLERATED 2. RECOMMEND ENSURE CLEAR TID 3. RECOMMEND NEPHRO-RUBI DAILY 4. RD TO FOLLOW-UP 2-3 DAYS, HIGH RISK GUNNER LARKIN, RD
[2020-01-26] MEDS: FAMOTIDINE 20 MG TAB PO SCH (13:49)
--- NOTE | 2020-01-26 13:49 | NUR ---
PT WAS GIVEN THE SCHEDULED ORAL MEDICATIONS NOW INCLUDING THE SCHEDULED ABILIFY AND PEPCID IN THE AM, ASPIRATION PRECAUTION INITIATED. WILL MONITOR PT.
[2020-01-26] MEDS: ARIPiprazole 10 MG TAB PO SCH (13:50)
[2020-01-26 16:00] VITALS: BP 123/73
--- NOTE | 2020-01-26 16:21 | NUR ---
PT WAS GIVEN ORAL TABLET SCHEDULED AND BLOOD GLUCOSE CHECK DONE AND IS 147, NO INSULIN COVERAGE NEEDED.
--- NOTE | 2020-01-26 19:15 | NUR ---
ENDORSED PATIENT TO NIGHT NURSE. PATIENT IS SITTING UP IN BED IN STABLE CONDITION.
--- NOTE | 2020-01-26 19:20 | NUR ---
RECEIVED REPORT FROM DAY SHIFT NURSE. PATIENT AWAKE, AND ALERT, LYING IN BED. PATIENT ON O2 @ 2LPM VIA NASAL CANNULA. WITH OWEN CATHETER DRAINING YELLOW URINE. WITH ABDOMINAL INCISION. REVIEWED PLAN OF CARE TO PATIENT. SAFETY MEASURES IN PLACE. CALL LIGHT WITHIN REACH. WILL CONTINUE TO MONITOR PATIENT.
--- NOTE | 2020-01-26 19:42 | NUR ---
DIALYSYS LEFT UPON MY ARRIVAL PT RESTING COMFORTABLY AT THIS TIME
[2020-01-26 20:00] VITALS: BP 149/66
[2020-01-26] MEDS: MONTELUKAST SODIUM 10 MG TAB PO SCH (21:10)
[2020-01-26] MEDS: QUEtiapine FUMARATE 100 MG TAB PO SCH (21:12)
--- NOTE | 2020-01-26 21:15 | NUR ---
ALL SCHEDULED MEDICATIONS GIVEN. SAFETY MEASURES IN PLACE. WILL CONTINUE TO MONITOR.
--- NOTE | 2020-01-26 22:00 | NUR ---
PATIENT HAD BM, SMALL AMOUNT OF STOOL. CHECKED PATIENT'S ABDOMINAL INCISION- INTACT WITH SMALL AMOUNT OF SANGUINEOUS DRAINAGE. DRESSING IN PLACE. WILL CONTINUE TO MONITOR PATIENT.
--- NOTE | 2020-01-26 23:02 | NUR ---
PATIENT RESTING ON BED. NO SIGNS OF DISTRESS. CALL LIGHT WITHIN REACH. WILL CONTINUE TO MONITOR.
[2020-01-27] VITALS: BP 135/70
--- NOTE | 2020-01-27 02:00 | NUR ---
PATIENT IS SLEEPING COMFORTABLY. NO SIGNS OF DISTRESS NOTED. CALL LIGHT WITHIN REACH. WILL CONTINUE TO MONITOR.
--- NOTE | 2020-01-27 03:40 | NUR ---
PATIENT HAD BOWEL MOVEMENT WITH MODERATE AMOUNT OF STOOL, BLACK IN COLOR. PATIENT VOMITED WITH GREEN COLOR UPON CHANGING AND REPOSITIONING HER. MADE COMFORTABLE THEREAFTER. SAFETY MEASURES IN PLACE. CALL LIGHT WITHIN REACH. WILL CONTINUE TO MONITOR PATIENT.
[2020-01-27 04:00] VITALS: BP 132/63
[2020-01-27] MEDS: PIPERACILLIN/TAZOBACTAM 2.25 GM in DEXTROSE 5% 50 ML IV SCH ×3 (04:27→20:08)
[2020-01-27] MEDS: GABAPENTIN 100 MG CAP PO SCH ×3 (05:00→20:09)
--- NOTE | 2020-01-27 05:28 | NUR ---
SCHEDULED MEDICATION NEURONTIN NOT GIVEN. PATIENT REFUSED. EXPLAINED THE BENEFITS OF TAKING THE MEDICATIONS. EDUCATED PATIENT REGARDING THE USES, SIGNS/SYMPTOMS, SIDE EFFECTS OF THE MEDICATION BUT STILL REFUSED. WILL CONTINUE TO MONITOR PATIENT.
[2020-01-27 06:16] LABS: HEPATITIS A ANTIBODY IGM Negative (Negative); HEPATITIS B CORE AB TOTAL Negative (Negative); HEPATITIS B SURFACE ANTIBODY Non Reactive (.); HEPATITIS B SURFACE ANTIGEN Negative (Negative)
[2020-01-27] MEDS: BLOOD GLUCOSE MONITORING 1 DEV DEV FS SCH ×4 (06:24→20:30)
--- NOTE | 2020-01-27 07:16 | NUR ---
PT IS STABLE. GAVE REPORT TO DAY SHIFT NURSE FOR CONTINUITY OF CARE.
[2020-01-27] MEDS: ALBUTEROL SULFATE/IPRATROPIU 3 ML SOL IH SCH ×3 (07:18→19:44)
--- NOTE | 2020-01-27 07:20 | NUR ---
RECEIVED REPORT FROM RECOVERY OPERATOR NURSE CRESCENCIO-MONI. PT RESTING IN BED, AOX4, ON 2L/NC, LEFT AC #20G RUNNING TKO, WITH RIGHT IJ JANAE CATH PLACED ON 01/23. OWEN CATHETER IN PLACE. S/P HERNIA REPAIR 01/[address] GIN TREVIZO. DISCUSSED PLAN OF CARE AND PT VERBALIZED UNDERSTANDING. NO S/S OF RESPIRATORY DISTRESS OR DISCOMFORT NOTED AT THIS TIME. WILL CONTINUE TO MONITOR.
[2020-01-27 07:52] LABS: BASOPHILS % (AUTO) 0.4 % (0.0-2.0); EOSINOPHILS # (AUTO) 0.2 K/uL (0-0.4); EOSINOPHILS % (AUTO) 4.2 % (0.0-4.0); HEMATOCRIT 29.2 % (36-48); HEMOGLOBIN 9.9 g/dL (12.0-16.0); LYMPHOCYTES # (AUTO) 0.7 K/uL (2.5-16.5); LYMPHOCYTES % (AUTO) 12.4 % (20.5-51.1); MEAN CORPUSCULAR HEMOGLOBIN 32 pg (27-31); MEAN CORPUSCULAR HGB CONC 34 g/dL (33-37); MEAN CORPUSCULAR VOLUME 93.4 fL (80-94); MONOCYTES # (AUTO) 0.7 K/uL (0.8-1.0); MONOCYTES % (AUTO) 11.1 % (1.7-9.3); NEUTROPHILS # (AUTO) 4.2 K/uL (1.8-7.7); NEUTROPHILS % (AUTO) 71.9 % (42.2-75.2); PLATELET COUNT (AUTO) 220 K/uL (140-450); RED BLOOD CELL COUNT(AUTO) 3.12 MIL/uL (4.20-5.40); RED CELL DISTRIBUTION WIDTH 13.5 % (11.6-13.7); WHITE BLOOD COUNT (AUTO) 5.9 K/uL (4.8-10.8)
[2020-01-27 08:00] VITALS: BP 122/59
[2020-01-27] MEDS: GEMFIBROZIL 600 MG TAB PO SCH ×2 (08:04→17:44)
[2020-01-27] MEDS: busPIRone 5 MG TAB PO SCH ×2 (08:05→20:09)
[2020-01-27] MEDS: DOCUSATE SODIUM 100 MG GELCAP PO SCH ×2 (08:05→20:09)
[2020-01-27] MEDS: ARIPiprazole 10 MG TAB PO SCH (08:05)
[2020-01-27] MEDS: FAMOTIDINE 20 MG TAB PO SCH (08:06)
--- NOTE | 2020-01-27 08:06 | NUR ---
SCHEDULED MEDICATIONS GIVEN AND TOLERATED WELL. NO S/S OF RESPIRATORY DISTRESS OR DISCOMFORT NOTED AT THIS TIME. WILL CONTINUE TO MONITOR.
[2020-01-27 08:17] LABS: ANION GAP 11.2 (8-16); CARBON DIOXIDE 30.3 mmol/L (21-32); CREATININE 1.5 mg/dL (0.6-1.3); POTASSIUM 3.5 mmol/L (3.5-5.1)
[2020-01-27 08:18] LABS: MAGNESIUM 1.8 mg/dL (1.8-2.4); PHOSPHORUS 2.7 mg/dL (2.5-4.9)
--- NOTE | 2020-01-27 09:15 | NUR ---
ASSISTED DELFIN-BRICK AND BLOCKER AID LABOR WITH PERINEAL CARE AFTER PT HAD BM. INCONTINENT
--- NOTE | 2020-01-27 11:30 | NUR ---
BLOOD GLUCOSE 121- NO INSULIN COVERAGE NEEDED. NO S/S OF RESPIRATORY DISTRESS OR DISCOMFORT NOTED AT THIS TIME. WILL CONTINUE TO MONITOR.
[2020-01-27 12:00] VITALS: BP 125/60
--- NOTE | 2020-01-27 13:23 | NUR ---
SCHEDULED MEDICATIONS GIVEN AND TOLERATED WELL. NO S/S OF RESPIRATORY DISTRESS OR DISCOMFORT NOTED AT THIS TIME. WILL CONTINUE TO MONITOR.
--- NOTE | 2020-01-27 15:36 | NUR ---
PT CONTINUES TO REST IN BED. NO S/S OF RESPIRATORY DISTRESS OR DISCOMFORT NOTED AT THIS TIME. WILL CONTINUE TO MONITOR.
[2020-01-27 16:00] VITALS: BP 142/58
--- NOTE | 2020-01-27 16:30 | NUR ---
BLOOD GLUCOSE 138- NO INSULIN COVERAGE NEEDED.
--- NOTE | 2020-01-27 17:44 | NUR ---
SCHEDULED MEDICATION LOPID GIVEN AND TOLERATED WELL. PT STATED SHE DOES NOT HAVE AN APPETITE. NO S/S OF RESPIRATORY DISTRESS OR DISCOMFORT NOTED AT THIS TIME. WILL CONTINUE TO MONITOR.
--- NOTE | 2020-01-27 19:21 | NUR ---
RECEIVED PATIENT IN STABLE CONDITION FROM AM SHIFT NURSE FOR CONTINUITY OF CARE. RESPIRATIONS EVEN, UNLABORED. CONTINUES ON O2 2L VIA NC. SKIN WARM, DRY. IV SITE NOTED TO LEFT AC 20G PATENT/INTACT. RIGHT IJ FOR HD NOTED. NO C/O PAIN. NO S/S ACUTE DISTRESS. CALL LIGHT WITHIN REACH. WILL CONTINUE TO MONITOR.
[2020-01-27 20:00] VITALS: BP 149/71
[2020-01-27] MEDS: MONTELUKAST SODIUM 10 MG TAB PO SCH (20:09)
[2020-01-27] MEDS: QUEtiapine FUMARATE 100 MG TAB PO SCH (20:09)
--- NOTE | 2020-01-27 21:35 | NUR ---
REPOSITIONED PATIENT IN BED WITH ASSIST OF RN. DUE MEDS GIVEN. PATIENT IN STABLE CONDITION. NO C/O PAIN. NO S/S ACUTE DISTRESS. CALL LIGHT WITHIN REACH. WILL CONTINUE TO MONITOR.
--- NOTE | 2020-01-27 23:05 | NUR ---
PATIENT ASLEEP AND IN STABLE CONDITION. NO C/O PAIN. NO S/S ACUTE DISTRESS. CALL LIGHT WITHIN REACH. WILL CONTINUE TO MONITOR.
[2020-01-28] VITALS: BP 138/75
--- NOTE | 2020-01-28 01:00 | NUR ---
MADE ROUNDS. PATIENT IS ASLEEP. CONTINUES IN STABLE CONDITION. NO S/S ACUTE DISTRESS. CALL LIGHT WITHIN REACH. WILL CONTINUE TO MONITOR.
--- NOTE | 2020-01-28 03:07 | NUR ---
PATIENT CONTINUES IN STABLE CONDITION. REPOSITIONED FOR COMFORT. NO C/O PAIN. NO S/S ACUTE DISTRESS. CALL LIGHT WITHIN REACH. WILL CONTINUE TO MONITOR.
[2020-01-28 04:00] VITALS: BP 128/77
[2020-01-28] MEDS: GABAPENTIN 100 MG CAP PO SCH ×3 (04:33→20:25)
[2020-01-28] MEDS: PIPERACILLIN/TAZOBACTAM 2.25 GM in DEXTROSE 5% 50 ML IV SCH ×3 (04:33→20:26)
--- NOTE | 2020-01-28 05:46 | NUR ---
PATIENT ASLEEP. NO C/O PAIN. NO S/S ACUTE DISTRESS. CALL LIGHT WITHIN REACH. WILL CONTINUE TO MONITOR.
[2020-01-28 07:20] LABS: MAGNESIUM 1.7 mg/dL (1.8-2.4); PHOSPHORUS 2.8 mg/dL (2.5-4.9)
--- NOTE | 2020-01-28 07:20 | NUR ---
RECEIVED BEDSIDE REPORT FROM NIGHT NURSE. PATIENT IN BED, ASLEEP, EASILY AROUSABLE BY NAME OR TOUCH. RESPIRATION EVEN AND UNLABORED. RT AT BEDSIDE FOR BREATHING TREATMENTS. PLANS OF CARE DISCUSSED. IV INTACT AND PATENT TO LEFT AC. OWEN CATHETER INTACT AND PATENT. O2 ON @ 2L VIA NC. SAFETY MEASURES IN PLACE. ABD DRESSING INTACT AND DRY. NO S/S OF DISTRESS NOTED.
[2020-01-28] MEDS: ALBUTEROL SULFATE/IPRATROPIU 3 ML SOL IH SCH ×3 (07:24→19:46)
[2020-01-28 07:28] LABS: BASOPHILS % (AUTO) 0.7 % (0.0-2.0); EOSINOPHILS # (AUTO) 0.3 K/uL (0-0.4); EOSINOPHILS % (AUTO) 5.7 % (0.0-4.0); HEMATOCRIT 29.3 % (36-48); HEMOGLOBIN 9.9 g/dL (12.0-16.0); LYMPHOCYTES # (AUTO) 0.8 K/uL (2.5-16.5); LYMPHOCYTES % (AUTO) 15.1 % (20.5-51.1); MEAN CORPUSCULAR HEMOGLOBIN 32 pg (27-31); MEAN CORPUSCULAR HGB CONC 34 g/dL (33-37); MEAN CORPUSCULAR VOLUME 93.1 fL (80-94); MONOCYTES # (AUTO) 0.7 K/uL (0.8-1.0); MONOCYTES % (AUTO) 13.4 % (1.7-9.3); NEUTROPHILS # (AUTO) 3.5 K/uL (1.8-7.7); NEUTROPHILS % (AUTO) 65.1 % (42.2-75.2); PLATELET COUNT (AUTO) 247 K/uL (140-450); RED BLOOD CELL COUNT(AUTO) 3.15 MIL/uL (4.20-5.40); RED CELL DISTRIBUTION WIDTH 13.3 % (11.6-13.7); WHITE BLOOD COUNT (AUTO) 5.3 K/uL (4.8-10.8)
[2020-01-28 07:31] LABS: ANION GAP 13.5 (8-16); CARBON DIOXIDE 27.9 mmol/L (21-32); CREATININE 1.3 mg/dL (0.6-1.3); POTASSIUM 3.4 mmol/L (3.5-5.1)
[2020-01-28] MEDS: BLOOD GLUCOSE MONITORING 1 DEV DEV FS SCH ×4 (07:45→20:30)
[2020-01-28 08:00] VITALS: BP 149/73
[2020-01-28] MEDS: busPIRone 5 MG TAB PO SCH ×2 (08:21→20:25)
[2020-01-28] MEDS: DOCUSATE SODIUM 100 MG GELCAP PO SCH ×2 (08:21→20:25)
[2020-01-28] MEDS: FAMOTIDINE 20 MG TAB PO SCH (08:22)
[2020-01-28] MEDS: GEMFIBROZIL 600 MG TAB PO SCH ×2 (08:22→16:48)
[2020-01-28] MEDS: ARIPiprazole 10 MG TAB PO SCH (08:22)
--- NOTE | 2020-01-28 09:30 | NUR ---
PATIENT AAOX4. NO S/S OF DISTRESS NOTED. AM MEDICATIONS GIVEN. CALL LIGHT WITHIN REACH.
--- NOTE | 2020-01-28 11:30 | NUR ---
ROUNDS MADE. PATIENT ASLEEP, ABLE TO WAKE BY NAME OR TOUCH. O2 ON @2L VIA NC. NO S/S OF DISTRESS NOTED.
[2020-01-28 12:00] VITALS: BP 127/57
--- NOTE | 2020-01-28 13:30 | NUR ---
ROUNDS MADE. PATIENT AWAKE, AND VERBALLY RESPONSIVE. O2 ON @2L VIA NC. NO S/S OF DISTRESS NOTED.
[2020-01-28] MEDS ORDERED: POTASSIUM CHLORIDE 10 MEQ TABER PO SCH (15:00)
[2020-01-28] MEDS ORDERED: MAGNESIUM OXIDE 400 MG TAB PO SCH (15:15)
--- NOTE | 2020-01-28 15:20 | NUR ---
ROUNDS MADE. PATIENT ASLEEP, ABLE TO WAKE BY NAME OR TOUCH. O2 ON @2L VIA NC. NO S/S OF DISTRESS NOTED. CALL LIGHT WITHIN REACH.
[2020-01-28 16:00] VITALS: BP 157/72
[2020-01-28] MEDS: INSULIN LISPRO SLIDING SCALE 100 UNITS/ML VIAL SUBQ PRN (16:47)
--- NOTE | 2020-01-28 17:30 | NUR ---
PATIENT IN BED, ASLEEP, RESPIRATION EVEN AND UNLABORED. NO S/S OF DISTRESS NOTED.
--- NOTE | 2020-01-28 18:30 | NUR ---
PATIENT IS AWAKE, ALERT AND ORIENTED X4. NO S/S OF DISTRESS NOTED.
--- NOTE | 2020-01-28 19:15 | NUR ---
REPORT GIVEN TO NIGHT NURSE FOR CONTINUITY OF CARE. PATIENT IN STABLE CONDITION.
--- NOTE | 2020-01-28 19:15 | NUR ---
RECEIVED REPORT FROM DAY SHIFT NURSE. PATIENT LYING ON BED, ALERT, AND ORIENTED X 4. PATIENT ON O2 @ 2LPM VIA NASAL CANNULA. RESPIRATIONS EVEN AND UNLABORED. PATIENT WITH ABDOMINAL INCISION, DRESSING INTACT. WITH SALINE LOCK ON LEFT FOREARM, INTACT AND PATENT. WITH OWEN CATHETER DRAINING YELLOW URINE. NOTED JANAE CATHETER @ RIGHT IJ. REVIEWED PLAN OF CARE TO PATIENT, VERBALIZED UNDERSTANDING. SAFETY MEASURES IN PLACE. CALL LIGHT WITHIN REACH. WILL CONTINUE TO MONITOR PATIENT.
--- NOTE | 2020-01-28 19:57 | NUR ---
RECEIVED PATIENT ON 2L NASAL CANNULA, PULSE OX SAT 97%. SCHEDULED BREATHING TREATMENT ADMINISTERED. TOLERATED TX WELL WITHOUT ADVERSE SIDE EFFECTS. PT MADE AWARE OF ORDERED MEDICATION FREQUENCY AND INSTRUCTED TO CALL NEEDED FOR SOB. NO ACUTE RESPIRATORY DISTRESS NOTED AT THIS TIME. WILL CONTINUE TO MONITOR.
[2020-01-28 20:00] VITALS: BP 154/69
[2020-01-28] MEDS: MONTELUKAST SODIUM 10 MG TAB PO SCH (20:25)
[2020-01-28] MEDS: QUEtiapine FUMARATE 100 MG TAB PO SCH (20:25)
--- NOTE | 2020-01-28 20:25 | NUR ---
ALL SCHEDULED DUE MEDICATIONS GIVEN. SAFETY MEASURES IN PLACE. WILL CONTINUE TO MONITOR PATIENT.
--- NOTE | 2020-01-28 21:45 | NUR ---
PATIENT COMPLAINED OF FULLNESS ON HER STOMACH AND IS BLOATED. NOTIFIED MD AND ORDERED SOME MEDICATIONS. WILL CONTINUE TO MONITOR PATIENT.
[2020-01-28] MEDS ORDERED: BISACODYL 5 MG TABEC PO SCH (21:50)
[2020-01-28] MEDS ORDERED: SIMETHICONE 80 MG TAB.CHEW PO SCH (21:50)
--- NOTE | 2020-01-28 22:24 | NUR ---
SIMETHICON GIVEN PER ORDER. ABDOMINAL DRESSING CHANGED WITH MODERATE SANGUINEOUS DRAINAGE. 18 JOSELINE NOTED. CLEANSED WITH NS, PATTED DRY. PATIENT TOLERATED PROCEDURE WELL. DENIES ANY PAIN. WILL CONTINUE TO MONITOR.
[2020-01-29] VITALS: BP 138/75
--- NOTE | 2020-01-29 02:34 | NUR ---
PATIENT SLEEPING COMFORTABLY. NO SIGNS OF DISTRESS. WILL CONTINUE TO MONITOR PATIENT.
--- NOTE | 2020-01-29 03:37 | NUR ---
PATIENT STILL SLEEPING COMFORTABLY. NO SIGNS OF DISTRESS. WILL CONTINUE TO MONITOR PATIENT.
[2020-01-29 04:00] VITALS: BP 146/65
--- NOTE | 2020-01-29 04:12 | NUR ---
VITAL SIGNS TAKEN. PATIENT ASLEEP. WILL CONTINUE TO MONITOR.
[2020-01-29] MEDS: GABAPENTIN 100 MG CAP PO SCH ×3 (05:59→20:50)
--- NOTE | 2020-01-29 05:59 | NUR ---
SCHEDULED MEDICATION GIVEN. WILL CONTINUE TO MONITOR PATIENT.
[2020-01-29] MEDS: BLOOD GLUCOSE MONITORING 1 DEV DEV FS SCH ×4 (06:29→21:15)
[2020-01-29] MEDS: ALBUTEROL SULFATE/IPRATROPIU 3 ML SOL IH SCH ×2 (07:18→13:37)
--- NOTE | 2020-01-29 07:21 | NUR ---
PT IS STABLE. ENDORSED PATIENT TO DAY SHIFT NURSE FOR CONTINUITY OF CARE.
--- NOTE | 2020-01-29 07:22 | NUR ---
RECEIVED REPORT FROM ACCOUNTS PAYABLE SUPERVISOR NURSE. PATIENT LYING DOWN IN BED SLEEPING, AROUSABLE BY VOICE. NO DISTRESS NOTED. DENIES ANY PAIN. AAOX4, CALM, COOPERATIVE, SKIN COLOR APPROPRIATE TO ETHNICITY, WARM TO TOUCH. HAS ABD WOUND S/P UMBELICAL HERNIA REPAIR ON 01/25/20. DRESSINGS DRY AND INTACT. RESPIRATIONS EVEN, UNLABORED, ON ROOM AIR. REVIEWED PLAN OF CARE WITH PATIENT. PATIENT VERBALIZED UNDERSTANDING. SAFETY MEASURES IN PLACE, CALL LIGHT WITHIN REACH. WILL CONTINUE TO MONITOR.
[2020-01-29 08:00] VITALS: BP 129/63
[2020-01-29] MEDS: DOCUSATE SODIUM 100 MG GELCAP PO SCH ×2 (09:00→21:00)
[2020-01-29] MEDS: ARIPiprazole 10 MG TAB PO SCH (09:04)
[2020-01-29] MEDS: NIFEdipine 30 MG TABER PO SCH (09:05)
[2020-01-29] MEDS: busPIRone 5 MG TAB PO SCH ×2 (09:05→20:49)
[2020-01-29] MEDS: FAMOTIDINE 20 MG TAB PO SCH (09:05)
[2020-01-29] MEDS: GEMFIBROZIL 600 MG TAB PO SCH ×2 (09:06→17:52)
--- NOTE | 2020-01-29 09:11 | NUR ---
PATIENT SITTING IN BED WITH BREAKFAST TRAY IN FRONT. NO DISTRESS NOTED. SCHEDULED MEDICATIONS DUE GIVEN. WILL CONTINUE TO MONITOR.
--- NOTE | 2020-01-29 10:15 | NUR ---
ASSUMED CARE FROM CEREAL POPPER NURSE. PT AAOX4. NO SOB NOTED.
[2020-01-29 12:00] VITALS: BP 137/68
[2020-01-29] MEDS: PIPERACILLIN/TAZOBACTAM 2.25 GM in DEXTROSE 5% 50 ML IV SCH ×2 (13:00→20:49)
[2020-01-29 13:13] LABS: BASOPHILS % (AUTO) 0.8 % (0.0-2.0); EOSINOPHILS # (AUTO) 0.2 K/uL (0-0.4); HEMATOCRIT 31.1 % (36-48); HEMOGLOBIN 10.5 g/dL (12.0-16.0); LYMPHOCYTES # (AUTO) 1.1 K/uL (2.5-16.5); LYMPHOCYTES % (AUTO) 19.3 % (20.5-51.1); MEAN CORPUSCULAR HEMOGLOBIN 31 pg (27-31); MEAN CORPUSCULAR HGB CONC 34 g/dL (33-37); MEAN CORPUSCULAR VOLUME 92.6 fL (80-94); MONOCYTES # (AUTO) 0.6 K/uL (0.8-1.0); MONOCYTES % (AUTO) 10.9 % (1.7-9.3); NEUTROPHILS # (AUTO) 3.7 K/uL (1.8-7.7); PLATELET COUNT (AUTO) 287 K/uL (140-450); RED BLOOD CELL COUNT(AUTO) 3.36 MIL/uL (4.20-5.40); RED CELL DISTRIBUTION WIDTH 13.3 % (11.6-13.7); WHITE BLOOD COUNT (AUTO) 5.7 K/uL (4.8-10.8)
[2020-01-29 13:29] LABS: ANION GAP 13.2 (8-16); CARBON DIOXIDE 25.4 mmol/L (21-32); CREATININE 1.2 mg/dL (0.6-1.3); POTASSIUM 3.6 mmol/L (3.5-5.1)
[2020-01-29 13:39] LABS: MAGNESIUM 1.6 mg/dL (1.8-2.4); PHOSPHORUS 2.8 mg/dL (2.5-4.9)
--- NOTE | 2020-01-29 13:52 | NUR ---
01/29/20 RD FOLLOW UP COMPLETED PLEASE REFER TO NUTRITION ASSESSMENT UNDER CARE ACTIVITY FOR ESTIMATED NUTRITIONAL NEEDS. 1. CONTINUE FULL LIQUID DIET 2. IF/WHEN PT IS MEDICALLY CLEARED TO ADVANCE DIET CONSIDER A BRAT DIET FOLLOWED BY A SOFT AND LOW FIBER DIET TOLERATED 3. RECOMMEND ENSURE CLEAR TID AND BHARGAV BID 4. RD TO FOLLOW-UP 2-3 DAYS, HIGH RISK GUNNER LARKIN, ALFREDITO
[2020-01-29 16:00] VITALS: BP 135/60
--- NOTE | 2020-01-29 17:15 | NUR ---
PT WAS MOVED TO ISOLATION ROOM FOR DROPLET ISO. OSMAN VIRUS SWAB DONE, SPECIMEN SENT TO LAB.
--- NOTE | 2020-01-29 19:04 | NUR ---
PT AWAKE, WATCHING TV. NO SOB NOTED. NO COMPLAINTS MADE. WILL ENDORSE TO NEXT SHIFT NURSE FOR CONTINUITY OF CARE.
--- NOTE | 2020-01-29 19:15 | NUR ---
RECEIVED PT IN STABLE CONDITION FROM AM NURSE. PT ON TELE MONITOR. BEDREST. WITH O22L/NC. NO RESPIRATORY DISTRESS NOTED. WITH IV HL ON THE LT AC AND RT FA BOTH G #20. RT IJ HD CATHETER. ON DROPLET PREC, STILL COVID-19 TEST PENDING. OWEN CATHETER IN PLACED. WITH ABDOMINAL DRESSING ABD IN PLACED. FREQ ROUNDS NEEDED. BED ON LOW POSITION. SIDE RAILS UP X2. CALL LIGHT PLACED WITHIN EASY REACH. PLAN OF CARE DISCUSSED AND VERBALIZED UNDERSTANDING. WILL CONTINUE TO MONITOR.
[2020-01-29 19:55] VITALS: BP 101/37
--- NOTE | 2020-01-29 20:00 | NUR ---
PT HAD A LOOSE BM . CLEANED AND KEPT DRY.
[2020-01-29] MEDS ORDERED: ALBUTEROL HFA MDI 90 MCG/ACTUATION 8 GM INH PRN ×2 (20:15→20:50)
[2020-01-29] MEDS: QUEtiapine FUMARATE 100 MG TAB PO SCH (20:51)
[2020-01-29] MEDS: MONTELUKAST SODIUM 10 MG TAB PO SCH (20:51)
--- NOTE | 2020-01-29 21:15 | NUR ---
BLOOD SUGAR WAS CHECKED RESULT 141. NO INSULIN COVERAGE NEEDED.
--- NOTE | 2020-01-29 23:00 | NUR ---
CHECKED ON PT. ASLEEP. NO S/S OF ANY DISCOMFORT NOR PAIN NOTED. O2 SAT 99% WITH O22L/NC.
[2020-01-30 00:10] VITALS: BP 116/53
--- NOTE | 2020-01-30 01:00 | NUR ---
MADE ROUNDS. PT ASLEEP. WITH NO S/S OF ANY DISCOMFORT NOTED. WILL CONTINUE TO MONITOR.
--- NOTE | 2020-01-30 01:10 | NUR ---
MAGNESIUM LEVEL 1.6. DR. SANTANA MADE AWARE.
--- NOTE | 2020-01-30 01:10 | NUR ---
DR. SANTANA MADE AWARE ABOUT THE RESULT OF COVID TEST WHICH IS NOT DETECTED. ASKED IF HE NEEDS A SECOND TEST. WILL WAIT FOR ANY ORDER. Addendum: 01/30/20 at 0129 by Kasia James RN PLS CANCEL ABOVE NOTES. WRONG PT.
--- NOTE | 2020-01-30 02:40 | NUR ---
CHECKED ON PT . SLEEPING WELL. WITH NO S/S OF ANY DISTRESS NOTED. WILL CONTINUE TO MONITOR.
[2020-01-30 04:30] VITALS: BP 136/69
[2020-01-30] MEDS: PIPERACILLIN/TAZOBACTAM 2.25 GM in DEXTROSE 5% 50 ML IV SCH ×3 (04:43→20:16)
[2020-01-30] MEDS: GABAPENTIN 100 MG CAP PO SCH ×3 (04:44→20:16)
--- NOTE | 2020-01-30 05:00 | NUR ---
HAD ANOTHER BM IN SMALL AMOUNT. CLEANED AND KPET DRY
--- NOTE | 2020-01-30 05:30 | NUR ---
GT STOMA WITH CLEAR LIQUID DRAIN FROM THE COLOSTOMY BAG, EMPTIED @ 100 ML. Addendum: 01/30/20 at 0716 by Kasia James RN CANCEL ABOVE NOTES. WRONG PT.
[2020-01-30] MEDS: BLOOD GLUCOSE MONITORING 1 DEV DEV FS SCH ×4 (05:50→20:29)
[2020-01-30 06:14] LABS: BASOPHILS # (AUTO) 0.2 K/uL (0.00-0.22); BASOPHILS % (AUTO) 4.3 % (0.0-2.0); EOSINOPHILS # (AUTO) 0.4 K/uL (0-0.4); EOSINOPHILS % (AUTO) 6.6 % (0.0-4.0); HEMATOCRIT 30.2 % (36-48); HEMOGLOBIN 10.2 g/dL (12.0-16.0); LYMPHOCYTES # (AUTO) 1.1 K/uL (2.5-16.5); MEAN CORPUSCULAR HEMOGLOBIN 31 pg (27-31); MEAN CORPUSCULAR HGB CONC 34 g/dL (33-37); MEAN CORPUSCULAR VOLUME 93.2 fL (80-94); MONOCYTES # (AUTO) 0.6 K/uL (0.8-1.0); MONOCYTES % (AUTO) 10.3 % (1.7-9.3); NEUTROPHILS # (AUTO) 3.4 K/uL (1.8-7.7); NEUTROPHILS % (AUTO) 59.8 % (42.2-75.2); PLATELET COUNT (AUTO) 288 K/uL (140-450); RED BLOOD CELL COUNT(AUTO) 3.24 MIL/uL (4.20-5.40); RED CELL DISTRIBUTION WIDTH 13.3 % (11.6-13.7); WHITE BLOOD COUNT (AUTO) 5.7 K/uL (4.8-10.8)
[2020-01-30 06:18] LABS: ANION GAP 10.8 (8-16); CARBON DIOXIDE 26.8 mmol/L (21-32); CREATININE 1.2 mg/dL (0.6-1.3); POTASSIUM 3.6 mmol/L (3.5-5.1)
--- NOTE | 2020-01-30 06:20 | NUR ---
SLEEPING. WITH NO DISCOMFORT NOTED. DR. FISCHER,RESIDENT , CAME AND SEEN PT.
[2020-01-30 06:29] LABS: MAGNESIUM 1.5 mg/dL (1.8-2.4); PHOSPHORUS 3.3 mg/dL (2.5-4.9)
--- NOTE | 2020-01-30 07:15 | NUR ---
ENDORSED PT IN STABLE CONDITION TO AM NURSE FOR CONTINUITY OF CARE.
--- NOTE | 2020-01-30 07:16 | NUR ---
RECEIVED REPORT FROM MEDICAL EXAMINER NURSE. PATIENT IN STABLE CONDITION ON TELE MONITOR. BEDREST. ON O22L/NC. NO RESPIRATORY DISTRESS NOTED. WITH IV HL ON THE LT AC AND RT FA BOTH G #20. RT IJ HD CATHETER. ON DROPLET PREC, STILL COVID-19 TEST PENDING. ABDOMINAL DRESSING IN PLACE, CLEAN AND DRY. OWEN IN PLACE. FREQ ROUNDS NEEDED. SAFETY MEASURES IN PLACE. BED ON LOW POSITION. SIDE RAILS UP X2. CALL LIGHT PLACED WITHIN EASY REACH. WILL CONTINUE TO MONITOR
[2020-01-30 08:00] VITALS: BP 140/68
[2020-01-30] MEDS: ARIPiprazole 10 MG TAB PO SCH (08:14)
[2020-01-30] MEDS: NIFEdipine 30 MG TABER PO SCH (08:15)
[2020-01-30] MEDS: GEMFIBROZIL 600 MG TAB PO SCH ×2 (08:15→17:00)
[2020-01-30] MEDS: FAMOTIDINE 20 MG TAB PO SCH (08:16)
[2020-01-30] MEDS: busPIRone 5 MG TAB PO SCH (08:16)
[2020-01-30] MEDS: DOCUSATE SODIUM 100 MG GELCAP PO SCH ×3 (08:16→20:15)
--- NOTE | 2020-01-30 08:45 | NUR ---
SCHEDULED MEDICATIONS GIVEN. PATIENT TOLERATED WELL. WILL CONTINUE TO MONITOR
--- NOTE | 2020-01-30 10:20 | NUR ---
PATIENT IN BED WATCHING TV. NO DISTRESS NOTED. WILL CONTINUE TO MONITOR.
[2020-01-30 12:00] VITALS: BP 134/69
--- NOTE | 2020-01-30 13:00 | NUR ---
SCHEDULED MEDICATIONS GIVEN. PATIENT TOLERATED WELL. WILL CONTINUE TO MONITOR.
[2020-01-30] MEDS ORDERED: LEVO500T2 PO (14:09)
[2020-01-30] MEDS ORDERED: levaquin (14:09)
[2020-01-30] MEDS: LISINOPRIL 10 MG TAB PO SCH (14:11)
[2020-01-30] MEDS ORDERED: MAG SULF 2000 MG/WATER PREMIX 100 ML IV SCH (15:00)
[2020-01-30 16:00] VITALS: BP 137/79
--- NOTE | 2020-01-30 16:24 | NUR ---
PATIENT RESTING IN BED WATCHING TV. NO DISTRESS NOTED AT THIS TIME. DENIES PAIN. WILL CONTINUE TO MONITOR.
--- NOTE | 2020-01-30 17:00 | NUR ---
PATIENT LYING DOWN IN BED SLEEPING, AROUSABLE BY VOICE. NO DISTRESS NOTED. DENIES ANY PAIN. SCHEDULED MEDICATIONS DUE GIVEN. WILL CONTINUE TO MONITOR.
--- NOTE | 2020-01-30 19:15 | NUR ---
REPORT GIVEN TO STONE OPERATOR NURSE FOR CONTINUITY OF CARE.
--- NOTE | 2020-01-30 19:16 | NUR ---
RECEIVED BEDSIDE REPORT FROM DAY RN/ PT IS AAOX4. RESPIRATIONS ARE EQUAL AND UNLABORED ON ROOM AIR.PT WITH OWEN CATH DRAINING YELLOW URINE. PT HAS OPEN UMBILICAL REPAIR WITH DR SIFUENTES SURGICAL INCISION WITH JOSELINE PER RN. ABD PAD IS C/D/I. HAS R IJ JANAE CATH. IV ON LAC 20G SL AND LFA 22G IVF PER ORDERS. PT ON BEDREST. ABLE TO MAKE NEEDS KNOWN. CALL LIGHT IS WITHIN REACH. POC DISCUSSED. WILL ROUND FREQUENTLY.
[2020-01-30 20:00] VITALS: BP 126/69
[2020-01-30] MEDS: QUEtiapine FUMARATE 100 MG TAB PO SCH (20:16)
[2020-01-30] MEDS: MONTELUKAST SODIUM 10 MG TAB PO SCH (20:16)
--- NOTE | 2020-01-30 20:16 | NUR ---
VSS. MT MEDICATIONS GIVEN PER ORDERS. PT TOLERATED WELL. ALL SAFETY MEASURES ARE IN PLACE. WILL CONTINUE TO MONITOR.
--- NOTE | 2020-01-30 22:00 | NUR ---
PATIENT IS LAYING COMFORTABLY IN BED WATCHING TV. NO S/S OF DISTRESS. CALL LIGHT IS WITHIN REACH.
[2020-01-31] VITALS: BP 134/74
--- NOTE | 2020-01-31 | NUR ---
VSS. DENIES PAIN. ALL SAFETY MEASURES ARE IN PLACE. WILL CONTINUE TO MONITOR.
--- NOTE | 2020-01-31 02:08 | NUR ---
PATIENT IS SLEEPING COMFORTABLY IN BED WITH EYES CLOSED. CHEST RISE AND FALL NOTED. NO S/S OF DISTRESS. WILL CONTINUE TO MONITOR.
[2020-01-31 04:00] VITALS: BP 137/73
--- NOTE | 2020-01-31 04:00 | NUR ---
VSS. PT WAS CLEANED AND REPOSITION FOR COMFORT. ALL SAFETY MEASURES ARE IN PLACE. CALL LIGHT IS WITHIN REACH. WILL CONTINUE TO MONITOR.
[2020-01-31] MEDS: PIPERACILLIN/TAZOBACTAM 2.25 GM in DEXTROSE 5% 50 ML IV SCH ×3 (05:04→20:42)
[2020-01-31] MEDS: GABAPENTIN 100 MG CAP PO SCH ×3 (05:06→20:41)
[2020-01-31 06:08] LABS: MAGNESIUM 2.3 mg/dL (1.8-2.4); PHOSPHORUS 3.2 mg/dL (2.5-4.9)
[2020-01-31 06:19] LABS: ANION GAP 11.3 (8-16); CARBON DIOXIDE 26.3 mmol/L (21-32); CREATININE 1.1 mg/dL (0.6-1.3); POTASSIUM 3.6 mmol/L (3.5-5.1)
[2020-01-31] MEDS: BLOOD GLUCOSE MONITORING 1 DEV DEV FS SCH ×4 (06:26→20:54)
--- NOTE | 2020-01-31 06:26 | NUR ---
BLOOD GLUCOSE 140. RESPIRATIONS ARE EQUAL AND UNLABORED ON 2L O2 VIA NC SAT 99%. ALL NEEDS MET.
[2020-01-31 07:22] LABS: HEMATOCRIT 30.5 % (36-48); HEMOGLOBIN 10.3 g/dL (12.0-16.0); MEAN CORPUSCULAR HEMOGLOBIN 32 pg (27-31); MEAN CORPUSCULAR HGB CONC 34 g/dL (33-37); MEAN CORPUSCULAR VOLUME 93.2 fL (80-94); PLATELET COUNT (AUTO) 321 K/uL (140-450); RED BLOOD CELL COUNT(AUTO) 3.27 MIL/uL (4.20-5.40); RED CELL DISTRIBUTION WIDTH 13.4 % (11.6-13.7); WHITE BLOOD COUNT (AUTO) 5.8 K/uL (4.8-10.8)
--- NOTE | 2020-01-31 07:31 | NUR ---
GAVE BEDSIDE REPORT FROM DAY RN. PT ENDORSED IN STABLE CONDITION.
--- NOTE | 2020-01-31 07:37 | NUR ---
RECEIVED PATIENT FROM NIGHT NURSE. PATIENT IS SLEEPING COMFORTABLY IN BED. NO NOTED DISTRESS. PATIENT CONTINUES ON 2L NC O2 SAT AT 99%. WILL CONTINUE WITH PLAN OF CARE.
[2020-01-31 08:00] VITALS: BP 130/94
[2020-01-31] MEDS: NIFEdipine 30 MG TABER PO SCH (08:33)
[2020-01-31] MEDS: LISINOPRIL 10 MG TAB PO SCH (08:33)
[2020-01-31] MEDS: ARIPiprazole 10 MG TAB PO SCH (08:34)
[2020-01-31] MEDS: GEMFIBROZIL 600 MG TAB PO SCH ×2 (08:34→16:44)
[2020-01-31] MEDS: DOCUSATE SODIUM 100 MG GELCAP PO SCH ×2 (08:34→20:40)
[2020-01-31] MEDS: FAMOTIDINE 20 MG TAB PO SCH (08:34)
--- NOTE | 2020-01-31 08:48 | NUR ---
MORNING ROUTINE MEDICATIONS GIVEN. PATIENT TOLERATED WELL. VITALS WNL 130/94 HR 80. CONTINUE ON 2L NC. 99%.
--- NOTE | 2020-01-31 10:20 | NUR ---
RECEIVED ORDER FROM DR FISCHER TO REMOVE QU CATH. ORDER CARRIED OUT. SITE IS CLEAN AND DRY, NO SIGNS OF INFECTION. COVERED WITH GAUZE AND TEGADERM. PATIENT TOLERATED WELL. NO SIGNS OF DISTRESS
[2020-01-31 10:26] LABS: EOSINOPHILS % (MANUAL) 2 % (0-4); LYMPHOCYTES % (MANUAL) 20 % (20-46); MONOCYTES % (MANUAL) 8 % (5-12)
--- NOTE | 2020-01-31 11:46 | NUR ---
SPOKE WITH FLORY FROM LAB, STATED THAT PT'S CORONAVIRUS RESULT #1 SHOULD BE IN LATER TODAY.
[2020-01-31 12:00] VITALS: BP 130/67
--- NOTE | 2020-01-31 14:05 | NUR ---
01/31/20 RD FOLLOW UP COMPLETED PLEASE REFER TO NUTRITION ASSESSMENT UNDER CARE ACTIVITY FOR ESTIMATED NUTRITIONAL NEEDS. 1. RECOMMEND SOFT NA2GM DIET TOLERATED 2. RECOMMEND ENSURE CLEAR TID AND BHARGAV BID 3. ENCOURAGE INCREASING PO INTAKE >75% 4. RD TO FOLLOW-UP 2-3 DAYS, HIGH RISK GUNNER LARKIN, ALFREDITO
[2020-01-31 16:00] VITALS: BP 125/67
--- NOTE | 2020-01-31 16:52 | NUR ---
BLOOD GLUCOSE CHECK 158. COVERAGE DID NOT GIVEN D/T PATIENT STATED SHE DID NOT EAT MUCH. NO NOTED DISTRESS AT THIS TIME.
--- NOTE | 2020-01-31 19:15 | NUR ---
ENDORSED PATIENT TO NIGHT NURSE. PATIENT IS EATING DINNER AND IN STABLE CONDITION.
--- NOTE | 2020-01-31 19:20 | NUR ---
RECEIVED REPORT FROM DAY SHIFT NURSE. PATIENT LYING ON BED, ALERT, ORIENTED X 4. PATIENT ON O2 @ 2L NC. RESPIRATIONS EVEN AND UNLABORED. STILL WITH ABDOMINAL INCISIONS, DRY AND INTACT. WITH IVF SITE PATENT AND INTACT WITH IVF INFUSING WELL. NOTED OWEN CATHETER DRAINING MODERATE YELLOW URINE. ON BEDREST, ENCOURAGED PATIENT TO AMBULATE. REVIEWED PLAN OF CARE TO PATIENT, VERBALIZED UNDERSTANDING. SAFETY MEASURES IN PLACE. CALL LIGHT WITHIN REACH. WILL CONTINUE TO MONITOR PATIENT.
[2020-01-31 20:00] VITALS: BP 110/50
--- NOTE | 2020-01-31 20:15 | NUR ---
INITIAL ASSESSMENT DONE. VITALS WERE TAKEN. PATIENT IN STABLE CONDITION. OWEN CATHETER DRAINING SENA URINE. ABDOMINAL DRESSING INTACT AND DRY. NO DRAINAGE NOTED. WILL CONTINUE TO MONITOR.
[2020-01-31] MEDS: MONTELUKAST SODIUM 10 MG TAB PO SCH (20:40)
[2020-01-31] MEDS: QUEtiapine FUMARATE 100 MG TAB PO SCH (20:40)
--- NOTE | 2020-01-31 20:40 | NUR ---
ALL SCHEDULED MEDS WERE GIVEN PER ORDER. NO ASE NOTED. WILL CONTINUE TO MONITOR.
--- NOTE | 2020-01-31 22:22 | NUR ---
PATIENT IS SLEEPING COMFORTABLY WITH NO SIGNS OF DISTRESS. RESPIRATIONS EVEN AND UNLABORED. O2 SAT AT 100%. WILL CONTINUE TO MONITOR PATIENT.
[2020-02-01] VITALS: BP 127/64
--- NOTE | 2020-02-01 02:00 | NUR ---
CHECKED PATIENT AND IS STILL SLEEPING COMFORTABLY. NO SIGNS OF DISTRESS NOTED. O2 SAT AT 99%, RESPIRATIONS EVEN AND UNLABORED. WILL CONTINUE TO MONITOR PATIENT.
[2020-02-01 04:00] VITALS: BP 121/77
[2020-02-01] MEDS: GABAPENTIN 100 MG CAP PO SCH ×2 (04:52→12:34)
[2020-02-01] MEDS: PIPERACILLIN/TAZOBACTAM 2.25 GM in DEXTROSE 5% 50 ML IV SCH ×2 (04:52→12:34)
--- NOTE | 2020-02-01 04:52 | NUR ---
ALL SCHEDULED MEDICATIONS GIVEN PER ORDER, TOLERATED WELL. WILL CONTINUE TO MONITOR PATIENT.
[2020-02-01] MEDS: BLOOD GLUCOSE MONITORING 1 DEV DEV FS SCH ×3 (06:05→16:30)
[2020-02-01 06:30] LABS: BASOPHILS % (AUTO) 0.7 % (0.0-2.0); EOSINOPHILS # (AUTO) 0.2 K/uL (0-0.4); EOSINOPHILS % (AUTO) 3.4 % (0.0-4.0); HEMATOCRIT 28.9 % (36-48); HEMOGLOBIN 9.8 g/dL (12.0-16.0); LYMPHOCYTES # (AUTO) 1.3 K/uL (2.5-16.5); LYMPHOCYTES % (AUTO) 20.6 % (20.5-51.1); MEAN CORPUSCULAR HEMOGLOBIN 32 pg (27-31); MEAN CORPUSCULAR HGB CONC 34 g/dL (33-37); MEAN CORPUSCULAR VOLUME 93.4 fL (80-94); MONOCYTES # (AUTO) 0.5 K/uL (0.8-1.0); MONOCYTES % (AUTO) 8.1 % (1.7-9.3); NEUTROPHILS # (AUTO) 4.3 K/uL (1.8-7.7); NEUTROPHILS % (AUTO) 67.2 % (42.2-75.2); PLATELET COUNT (AUTO) 322 K/uL (140-450); RED CELL DISTRIBUTION WIDTH 13.4 % (11.6-13.7); WHITE BLOOD COUNT (AUTO) 6.3 K/uL (4.8-10.8)
[2020-02-01 07:12] LABS: ANION GAP 13.8 (8-16); CARBON DIOXIDE 25.9 mmol/L (21-32); CREATININE 1.1 mg/dL (0.6-1.3); POTASSIUM 3.7 mmol/L (3.5-5.1)
[2020-02-01 07:15] LABS: MAGNESIUM 1.7 mg/dL (1.8-2.4); PHOSPHORUS 3.2 mg/dL (2.5-4.9)
--- NOTE | 2020-02-01 07:22 | NUR ---
PT IN STABLE CONDITION. ENDORSED PATIENT TO DAY SHIFT NURSE FOR CONTINUITY OF CARE.
--- NOTE | 2020-02-01 07:23 | NUR ---
RECEIVED REPORT FROM DIGITAL ANALYST NURSE. PT IS AOX4, NO C/O PAIN, NO SOB, RESPIRATIONS ARE EVEN AND UNLABORED. ON 3L O2 VIA NC. TELE MONITOR ATTACHED. WITH ABD SURGICAL INCISION S/P EX LAP AND HERNIA REPAIR, DRESSING INTACT. WITH IV SITE ON LFA 22G, TKO. PLAN OF CARE DISCUSSED. PT VERBALIZED UNDERSTANDING. SAFETY PRECAUTIONS IN PLACE. WILL CONTINUE TO MONITOR
[2020-02-01 08:00] VITALS: BP 107/48
[2020-02-01] MEDS: GEMFIBROZIL 600 MG TAB PO SCH ×2 (08:00→17:49)
[2020-02-01] MEDS ORDERED: MAG SULF 2000 MG/WATER PREMIX 50 ML IV SCH (09:00)
[2020-02-01] MEDS: ARIPiprazole 10 MG TAB PO SCH (09:00)
[2020-02-01] MEDS: NIFEdipine 30 MG TABER PO SCH (09:00)
[2020-02-01] MEDS: FAMOTIDINE 20 MG TAB PO SCH (09:00)
[2020-02-01] MEDS: DOCUSATE SODIUM 100 MG GELCAP PO SCH (09:00)
[2020-02-01] MEDS: LISINOPRIL 10 MG TAB PO SCH (09:00)
--- NOTE | 2020-02-01 09:30 | NUR ---
DUE MORNING MEDS GIVEN. TOLERATED WELL
--- NOTE | 2020-02-01 10:00 | NUR ---
RECEIVED CALL FROM LAB. PT IS COVID NEGATIVE
--- NOTE | 2020-02-01 11:45 | NUR ---
BLOOD SUGAR 114. NO COVERAGE
--- NOTE | 2020-02-01 14:05 | NUR ---
PT ASLEEP IN BED. NO APPARENT DISTRESS
[2020-02-01] MEDS ORDERED: LEVO500T2 PO (14:16)
[2020-02-01] MEDS ORDERED: LACT10CA1 PO (14:18)
[2020-02-01 16:00] VITALS: BP 113/59
[2020-02-01] MEDS ORDERED: NIFE30TE5 PO (16:00)
--- NOTE | 2020-02-01 17:05 | NUR ---
WITH DISCHARGE ORDER. DISCHARGE INSTRUCTIONS AND PRESCRIPTION GIVEN. WOUND CARE INSTRUCTED. WOUND CARE SUPPLIES GIVEN. FOLLOW UP APPOINTMENTS INSTRUCTED. PT WILL BE UNDER ALL [facility] FOR PT. PT VERBALIZED UNDERSTANDING. IV REMOVED, LUMEN INTACT. ID BAND REMOVED. TELE MONITOR REMOVED. WOUND DISCHARGE PHOTO TAKEN. AWAITING PT'S SISTER TO PICK HER UP.
--- NOTE | 2020-02-01 18:15 | NUR ---
ASSISTED PT TO FRONT LOBBY. PICKED BY SISTER VIA PRIVATE VEHICLE. IN STABLE CONDITION
== END 2020-02-01 18:15 | disposition home health service (06) | DRG 329 ==
LOC: MED 12:18 → MTU 17:50 → EEVIPCON 17:50 → UNDOADMIN 17:50 → MTU 18:16 → UNDOADMIN 18:16 → MIC 01-24 09:30 → MTU 01-25 16:31 → MMU 01-29 17:37
PROVIDERS: ADMIT General Practice; ATTEND General Practice
PROC: 0WQF0ZZ Repair Abdominal Wall, Open Approach (ICD-10-PCS; 2020-01-24)
PROC: 02H633Z Insertion of Infusion Device into Right Atrium, Percutaneous Approach (ICD-10-PCS; 2020-01-24)
PROC: B548ZZA Ultrasonography of Superior Vena Cava, Guidance (ICD-10-PCS; 2020-01-24)
PROC: 5A1D70Z Performance of Urinary Filtration, Intermittent, Less than 6 Hours Per Day (ICD-10-PCS; 2020-01-24)
PROC: 0DT80ZZ Resection of Small Intestine, Open Approach (ICD-10-PCS; principal; 2020-01-24 12:30)
PROC: 5A1D70Z Performance of Urinary Filtration, Intermittent, Less than 6 Hours Per Day (ICD-10-PCS; 2020-01-26)
DX: K42.0 Umbilical hernia with obstruction, without gangrene (principal); N17.0 Acute kidney failure with tubular necrosis; E43 Unspecified severe protein-calorie malnutrition; N39.0 Urinary tract infection, site not specified; Z68.43 Body mass index [BMI] 50.0-59.9, adult; E87.1 Hypo-osmolality and hyponatremia; B96.20 Unspecified Escherichia coli [E. coli] as the cause of diseases classified elsewhere; F20.9 Schizophrenia, unspecified; E78.5 Hyperlipidemia, unspecified; Z87.891 Personal history of nicotine dependence; G47.33 Obstructive sleep apnea (adult) (pediatric); K80.20 Calculus of gallbladder without cholecystitis without obstruction; E66.01 Morbid (severe) obesity due to excess calories; G62.9 Polyneuropathy, unspecified; E87.6 Hypokalemia; Z20.828 Contact with and (suspected) exposure to other viral communicable diseases; E83.39 Other disorders of phosphorus metabolism; I12.9 Hypertensive chronic kidney disease with stage 1 through stage 4 chronic kidney disease, or unspecified chronic kidney disease; N18.3 Chronic kidney disease, stage 3 (moderate); E83.42 Hypomagnesemia
CPT/HCPCS: 36415; 71045; 74018; 76770; 80048; 80053; 80305; 81001; 82948; 83036; 83605; 83690; 83735; 83880; 84100; 84443; 84484; 85025; 85610; 85730; 86704; 86706; 86708; 86709; 86803; 86886; 86900; 86901; 87081; 87086; 87186; 87340; 88307; 93005; 94640; 96374; 96375; 96376; 97110; 97112; 97116; 97161-GP; 97530; 99285; J0330; J0690; J1100; J1644; J1815; J2001; J2250; J2270; J2405; J2543; J2704; J2710; J2765; J3010; J3475; J3490; J7030; J7042; J7060; J7120; J7613; J7644; Q0092